=== PATIENT | male | born 1945 | race Caucasian/White ===

== ENCOUNTER 2024-05-05 07:49 | Day surgery (SDC) | payer OTHER, SELFPAY ==
--- NOTE | 2024-05-04 12:27 | CONSULT.STRU ---
Consultation
-
Date/Time Consultation Requested: 05/05/2024
Date/Time Consultation Performed: 05/05/2024
Requesting Provider: Reynaldo Sanchez MD
Performing Provider: JOHN Howell
Reason for Consultation: / TAVR
Patient History
Physicians
Family Physician: Moises Ruiz MD
Outpatient Program Lead: Bartolo Cisneros MD
Primary Program Lead: Bartolo Cisneros MD
History of Present Illness
Mr. Dean is a very pleasant 78 yom that presents with severe symptomatic aortic stenosis associated with WALLER and fatigue. Patient also ILD and is on home 02. Echocardiogram from 03/14/2024 is notable for: EF 65-70%, aortic valve P/M 66/37, ANJELICA 0.9,
Pk gilda. 4.06, DI 0.2. Discussed the pathophysiology and treatment options of aortic stenosis including SAVR and TAVR. Explained the evaluation process comprising of CT scan, CT surgical consult, dental clearance, and a heart team discussion. TAVR
booklet, contact information, prescriptions, and appointments given to patient. Allowed for and answered questions at bedside.
Past Medical History
Past Medical History: COPD (ILD, home O2), CVA/TIA (TIA), HTN, NIDDM, ADY (BiPAP), Valvular Disease (Aortic stenosis) and Other (obesity, mixed hyperlipidemia, PAD)
Past Surgical History
Past Surgical History: Other (hernia, moles removed)
Dental History
will need to make an appointment
Family History
Mother: at Age
Father: at Age
Social History
Alcohol: Occasional
Drug: None
Tobacco: Former Smoker
Personal:
Living: With Spouse
Allergies
NKDA
Home Medications
Aspirin 81 MG Tablet Delayed Release 1 tablet Orally Once a Day
Clopidogrel Bisulfate 75 MG Tablet 1 tablet Orally Once a day
Glimepiride 2 MG Tablet 1 tablet with breakfast or the first main meal of the day Orally Once a day
Lasix(Furosemide) 40 MG Tablet 1 tablet daily as needed for leg edema Orally , Notes to Pharmacist: prn
levETIRAcetam 750 MG Tablet 1 tablet Orally every 12 hrs
Losartan Potassium 25 MG Tablet 1 tablet Orally Once a Day
Magnesium 250 MG Tablet 1 capsule Orally Once a Day
Melatonin Gummies 2.5 MG Tablet Chewable 2 tabs Orally Once a Day PRN
Mycophenolate Mofetil 500 MG Tablet 3 Orally Twice a Day
Omeprazole 40 MG Capsule Delayed Release 1 tablet 30 minutes before morning meal Orally Once a Day
Pantoprazole Sodium 40 MG Tablet Delayed Release 1 tablet Orally Once a day
predniSONE 10 MG Tablet 1/2 tablet Orally Once a day , Notes to Pharmacist: 1/2 tablet once a day
Simvastatin 10 MG Tablet 1 tablet in the evening Orally Once a day
Symbicort(Budesonide-Formoterol Fumarate) 80-4.5 MCG/ACT Aerosol 2 puffs Inhalation Twice a day
Tamsulosin HCl 0.4 MG Capsule 1 capsule Orally Once a day
Vitamin B 12 250 MCG Lozenge 2 lozenges Orally Once a day
STS%
STS %: 6.11
Review of Systems
-
History Source: Patient
General: Reports Fatigue
HEENT: Reports No Symptoms
Respiratory: Reports SOB and WALLER
Cardiac: Reports Edema
Abdomen/GI: Reports No Symptoms
: Reports No Symptoms
Musculoskeletal: Reports No Symptoms
Skin: Reports No Symptoms
Neurological: Reports No Symptoms
Vascular: Reports No Symptoms
Physical Exam
Labs
03/07/2024
BUN/Creatinine: 17/1.41
GFR 50
05/02/2024
HH: 10.6/34.1
Plt: 203K
BUN/creatinine: 15/1.35
GFR: 53
Diagnostic Studies
Echocardiogram 03/14/2024
FINDINGS
Left Ventricle
Normal left ventricular size with borderline concentric LVH. Grossly normal
left ventricular function and systolic motion, although due to the technical
limitations of the study a subtle wall motion abnormality cannot be excluded.
Estimated ejection fraction seems to be in the range of 65 to 70%. Grade 1
diastolic dysfunction.
Right Ventricle
Grossly normal right ventricular size and function.
Left Atrium
Borderline left atrial size.
Right Atrium
Grossly normal right atrial size.
Mitral Valve
Mild mitral annular calcification. Aortic valve leaflets are mildly thickened
but demonstrated adequate excursion. No mitral regurgitation detected.
Aortic Valve
Probably trileaflet aortic valve with a bicuspid valve cannot be excluded.
Leaflets are thickened calcified with decreased excursion. Peak and mean
gradients across aortic valve were 66 and 37 mmHg respectively. This would be
consistent with moderately severe to severe aortic stenosis. No aortic
insufficiency detected.
Tricuspid Valve
Tricuspid valve is suboptimally visualized but grossly appeared to be normal.
There was trace tricuspid regurgitation. RV systolic pressure was estimated at
32 mmHg assuming a normal right atrial pressure.
Pulmonic Valve
Pulmonic valve is not well-visualized. No pulmonic insufficiency detected.
Pericardium\\Pleura
Was trivial posterior pericardial effusion.
Aorta
Aortic root was mildly dilated and atherosclerotic.
Other Finding
IVC was suboptimally visualized but grossly appeared to be of normal size and
respiratory variation suggesting normal right atrial pressure.
Interatrial septum was grossly intact with no evidence of shunt or aneurysm.
MEASUREMENTS (Male / Female) Normal Values
2D ECHO
LV Diastolic Diameter PLAX 5.6 cm 4.2 - 5.9 / 3.9 - 5.3 cm
LV Systolic Diameter PLAX 3.8 cm
IVS Diastolic Thickness 1.1 cm 0.6 - 1.0 / 0.6 - 0.9 cm
LVPW Diastolic Thickness 1.0 cm 0.6 - 1.0 / 0.6 - 0.9 cm
LV Relative Wall Thickness 0.4
RV Internal Dim ED PLAX 3.4 cm
LVOT Diameter 2.4 cm
Aortic Root Diameter 3.9 cm
Ascending Aorta Diameter 4.0 cm
DOPPLER
AV Peak Velocity 406.6 cm/s
AV Peak Gradient 66.1 mmHg
AV Mean Gradient 37.3 mmHg
AV Velocity Time Integral 91.2 cm
LVOT Peak Velocity 104.0 cm/s
LVOT Peak Gradient 4.3 mmHg
LVOT Velocity Time Integral 19.9 cm
LVOT Stroke Volume 86.2 cm3
LVOT Stroke Volume Index 36.0 ml/m2 empty
LVOT Cardiac Index 2197.3 cm3/min
AV Area Cont Eq vti 0.9 cm2
AV Area Cont Eq pk 1.1 cm2
MV Peak Velocity 123.7 cm/s
MV Peak Gradient 6.1 mmHg
MV Mean Velocity 78.6 cm/s
MV Mean Gradient 2.8 mmHg
Mitral E Point Velocity 81.2 cm/s
Mitral A Point Velocity 93.6 cm/s
Mitral E to A Ratio 0.9
TR Peak Velocity 269.7 cm/s
TR Peak Gradient 29.1 mmHg
Right Ventricular Systolic Press 32.1 mmHg
Procedure Type:�Isolated AVR
PERIOPERATIVE OUTCOME ESTIMATE %
Operative Mortality 6.11%
Morbidity & Mortality 17.1%
Stroke 1.3%
Renal Failure 4.14%
Reoperation 3.4%
Prolonged Ventilation 9.83%
Deep Sternal Wound Infection 0.105%
Long Hospital Stay (>14 days) 14.4%
Short Hospital Stay (<6 days)* 25.4%
Exam
General: Well Nourished, No Apparent Distress and Other (obese)
HEENT: Normocephalic
Cardiac: Murmur (III/ DINESH)
GI: Soft and Non Tender
Rectal: Deferred by Provider
Extremities: Lower Level Edema
Psych: Calm
Assessment / Plan
-
Aortic stenosis
Continue TAVR evaluation
Trend creatinine after contrast (Rx given)
TAVR CT scan (05/19)
CT surgical consult ([facility] 05/24)
Frailty testing and KCCQ12 at consult
Dental clearance
Continue aspirin and plavix
Heart team discussion
Data Reviewed
-
Maintenance Controller: Report Reviewed by me and Discussed with Physician
Echo: Report Reviewed by me and Discussed with Physician
Labs: Labs Reviewed by me
Old Records: Reviewed (Dr. Sanchez office note)
Total Time Spent with Patient (in minutes): 45
[2024-05-05] VITALS (14 sets, daily range): BP systolic 127–151; BP diastolic 67–90
[2024-05-05 09:08] LABS: Glucose - Point of Care 111 mg/dl (70-99)
[2024-05-05] MEDS: NSS 1000 IV (11:42)
--- NOTE | 2024-05-05 15:27 | ITS.CL.CATH ---
Director Writing - Catheterization
Cardiac Catheterization
Procedure Report:
CARDIAC CATHETERIZATION REPORT
Date of Procedure: 05/05/24
Referring: Dr. Shaq Sanchez
Indication: severe
PROCEDURE:
1. Right heart catheterization
2. Left heart catheterization
3. Coronary angiography
ACCESS:
6 Cuban right radial artery
6 Cuban right antecubital vein
CATHETERS:
1. 6 Cuban balloon wedge catheter
2. 6 Cuban JL3.5
3. 6 Cuban JR4
4. 6 Cuban Eitan pigtail
HEMODYNAMIC DATA
LV 194/10 (EDP 25) mmHg
AO 128/78 (mean 103) mmHg
RA 15 mmHg
RV 50/13 (EDP 19) mmHg
PA 53/24 (mean 34) mmHg
PCWP 19 mmHg
SaO2 97.4 %
SvO2 73.7 %
CO/CI 7.9/3.4 L/min/m2
PVR 1.9 Wood units
SVR 851 dsc*-5
Mean grad 48 mmHg
ANJELICA (Gorlin) 0.98 mmHg
CORONARY ANGIOGRAPHY
Dominance: right
LM: normal
LAD: gives rise to a small ramus/D1 and moderate caliber D2. There is a 40% ostial stenosis in the D2 and otherwise trivial luminal irregularities.
LCx: gives rise to a moderate caliber OM1 and moderate caliber LPL branch. There are trivial luminal irregularities.
RCA: gives rise to a moderate caliber RPDA and several small RPL branches. There are trivial luminal irregularities.
Closure Device: TR band
Radiation dose (mGy): 558.66
DAP (cm2.Gy): 46.3434
Fluoroscopy time (minutes): 12.1
CONCLUSIONS:
1. 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
2. Severe aortic stenosis
3. Non-obstructive coronary artery disease in a right dominant system
RECOMMENDATIONS:
1. Expectant management after cardiac catheterization via right radial artery
2. Continued PRN diuresis for chronic diastolic heart failure
3. Proceed with workup for TAVR
Copy to: Dr. Bartolo Cisneros MD (primary catheterization laboratory technician)
Reynaldo Sanchez MD, PhD
== END 2024-05-05 13:59 | disposition home or self-care (01) ==
LOC: CATH 07:49
PROVIDERS: ATTENDING PHYSICIAN Student in an Organized Health Care Education/Training Program; FAMILY PHYSICIAN Internal Medicine; OTHER PHYSICIAN Internal Medicine Cardiovascular Disease
DX: I25.10 Atherosclerotic heart disease of native coronary artery without angina pectoris (principal); I08.0 Rheumatic disorders of both mitral and aortic valves; I10 Essential (primary) hypertension; E11.9 Type 2 diabetes mellitus without complications; G47.33 Obstructive sleep apnea (adult) (pediatric); E78.2 Mixed hyperlipidemia; J44.9 Chronic obstructive pulmonary disease, unspecified; I27.29 Other secondary pulmonary hypertension; Z86.73 Personal history of transient ischemic attack (TIA), and cerebral infarction without residual deficits; Z87.891 Personal history of nicotine dependence; Z79.82 Long term (current) use of aspirin; Z79.02 Long term (current) use of antithrombotics/antiplatelets; Z79.84 Long term (current) use of oral hypoglycemic drugs
CPT/HCPCS: 82962; 93460; C1769; C1894; Q9967

== ENCOUNTER → 2024-05-19 09:20 | Outpatient (REF) | payer OTHER, SELFPAY | LOC: RAD 09:20 | PROVIDERS: ATTENDING PHYSICIAN Nurse Practitioner Acute Care; FAMILY PHYSICIAN Internal Medicine; REFERRING PHYSICIAN Internal Medicine Cardiovascular Disease | DX: I35.0 Nonrheumatic aortic (valve) stenosis (principal) | CPT/HCPCS: 74174; 75572; Q9967 ==

== ENCOUNTER 2024-06-16 07:25 | Inpatient (IN) | payer OTHER, SELFPAY ==
[2024-06-08 13:59] LABS: % Basophils 0.4 % (0-2); % Eosinophils 1.1 % (0-6); % Immature Granulocytes 0.5 % (0-0.5); % Lymphocytes 7.2 % (20.5-51.1); % Monocytes 7.6 % (1.7-9.3); % Neutrophils 83.2 % (42.2-75.2); Absolute Basophils 0.1 10^3/uL (0-0.2); Absolute Eosinophils 0.1 10^3/uL (0-0.7); Absolute Immature Granulocytes 0.1 10^3/uL (0-0.05); Absolute Lymphocytes 0.9 10^3/uL (1.2-3.4); Absolute Monocytes 0.9 10^3/uL (0.1-0.6); Absolute Neutrophils 9.9 10^3/uL (1.4-6.5); Hematocrit 34.5 % (39.0-52.0); Hemoglobin 11.1 g/dL (13.0-18.0); Mean Corp Hgb Conc. 32.2 g/dL (33.0-37.0); Mean Corpuscular Hgb 29.8 pg (27.0-31.0); Mean Corpuscular Volume 92.5 fL (80.0-94.0); Mean Platelet Volume 11.3 fL (7.4-10.4); Nucleated Red Blood Cells % 0 % (-); Platelet Count 169 10^3/uL (130-400); Red Blood Cell Count 3.73 10^6/uL (4.70-6.10); Red Cell Dist. Width 13.7 % (11.5-14.5); White Blood Cell Count 11.9 10^3/uL (4.8-10.8)
--- NOTE | 2024-06-08 14:04 | CM ---
Met with and Mrs. Dean in [facility]. He states prior to admission he resides with his spouse in a two story home with nine steps to enter. He states he has a full flight of steps to get to bedroom/full bathroom. He states he has a powder room on
the first floor. He states prior to admission he ambulates independently in the home but uses a single point cane or walker in the community. He states he uses home 02 at 3 liters. [employer] supplies his home 02. He has a walker,
single point cane,and Bipap Machine, home 02 portable tanks and concentrator and Inogen machine at home. He states he has a prescription plan. His spouse states she will be home to assist in his care if needed. The discharge plan is to return
home with his spouse and [facility] when medically stable.
We reviewed pre-op and post-op routines. We reviewed the shower instructions. He has he soap, written instructions and the TAVR Educational Booklet. We also reviewed restrictions including lifting and driving restrictions. We discussed [facility] and he is agrgeeable to [facility]. The plan is for TAVR on 06/16/24.
[2024-06-08 14:09] LABS: Urine Albumin Negative (Neg - Trace); Urine Bilirubin Negative (Negative); Urine Character Clear (Clear); Urine Color Yellow; Urine Glucose Trace (Negative); Urine Ketone Negative (Negative); Urine Leukocyte Trace (Negative); Urine Nitrite Negative (Negative); Urine Occult Blood Negative (Negative); Urine Urobilinogen Negative (Neg - 1+)
[2024-06-08 14:14] LABS: ALT (SGPT) 13 U/L (0-50); AST (SGOT) 14 U/L (17-59); Albumin 4.5 g/dl (3.5-5.0); Alkaline Phosphatase 115 U/L (38-126); Blood Urea Nitrogen 20 mg/dl (9-20); Calcium 8.9 mg/dl (8.4-10.2); Carbon Dioxide 27 mmol/L (22-30); Chloride 100 mmol/L (98-107); Direct Bilirubin 0.2 mg/dl (0.0-0.4); Glucose 216 mg/dl (70-99); Potassium 4.7 mmol/L (3.5-5.1); Sodium 142 mmol/L (135-145); Total Bilirubin 0.4 mg/dl (0.2-1.3); Total Protein 6.6 g/dl (6.3-8.2); eGFR 50.49
[2024-06-08 14:21] LABS: NT-proBNP 234 pg/ml
[2024-06-08 14:24] LABS: APTT 26.2 Sec (23.4-35.0)
[2024-06-08 14:47] LABS: Urine Red Blood Cell 0-2 /HPF (0-2)
[2024-06-08 15:19] LABS: INR 1.11; PT 14.3 Sec (11.4-14.6)
[2024-06-09 12:44] LABS: Glycohemoglobin (HgbA1c) 7.3 % (4.0-5.6)
[2024-06-16] VITALS (26 sets, daily range): BP systolic 100–142; BP diastolic 37–83; BMI 36.0
[2024-06-16] MEDS: ANCEF 10 IV ×2 (06:00→14:21)
[2024-06-16 08:02] LABS: Glucose - Point of Care 170 mg/dl (70-99)
--- NOTE | 2024-06-16 08:29 | CM ---
Reviewed chart. Mr. Dean is in the operating room today. Prior to admission he resides with his spouse in a two story home with nine steps to enter. He has a full flight of steps to get to bedroom/full bathroom. He has a powder room on the first
floor. Prior to admission he ambulates independently in the house and uses a single point cane or walker in the community. He uses home 02 at 3 liters. [employer] services his home 02. He has a walker, single point cane home 02,
Bi-pap Machine, concentrator, portable o2 and Inogen machine at home. He has a prescription plan. His spouse will be home to assist in his care if needed. Medical work-up in progress. The discharge plan is to return home with his spouse and a
home visit by the Transitional Care Nurse when medically stable.
--- NOTE | 2024-06-16 08:42 | W.CVOR.SURPR ---
CVOR Surgeon Immed Pre Op
-
I have examined this patient prior to performance of the scheduled procedure.
The patient's condition is unchanged from the time of the dictated/written History and
Physical and the patient is able to undergo the scheduled procedure.
TF TAVR
Full Rescue
Understands that with his current lung function he may end up vent dependent with a tracheostomy should he undergo open heart surgery
[2024-06-16] MEDS: BACTROBAN 2% OINTMENT 0.5 APPLIC NASAL (09:06)
--- NOTE | 2024-06-16 11:13 | W.PN.CT.SURG ---
CT Surgery Operative Note
-
OPERATIVE REPORT
Preoperative Diagnosis: Severe aortic valve stenosis, symptomatic
Postoperative Diagnosis: Same
Procedure(s) Performed: Right trans femoral TAVR with a 26mm Andres TAVR valve
Date of Procedure: 06/16/24
Comorbidities:
1. Severe aortic stenosis, symptomatic
2. Severe pulmonary disease on baseline supplemental oxygen
3. Hypertension
4. Hyperlipidemia
5. Morbidly obese with a BMI of greater than 30
6. Diabetes
7. History of TIA and possibility of atypical seizures
8. CKD
9. Anemia
Cardiac Surgeon: Mundo South MD, MS
Filling And Stapling Machine Operator: Shaq Sanchez MD
Anesthesia: LMA + sedation and Local Analgesia
EBL: 150cc
Products: none
Implant: 26 mm Andres TAVR valve, SN: [id number]
Indication(s) for Procedures: 79-year-old male with symptomatic severe aortic stenosis. CT-TAVR protocol revealed acceptable anatomy for TAVR access and implantation. His invasive mean gradient was significant for aortic valve stenosis. He also
had severe pulmonary fibrosis and required supplemental oxygen. He was considered to be a high risk TAVR patient.
Start time: 1008hrs
Deployment time: 1040hrs
End time: 1056hrs
Radiation Dose (mGy): 659.95
DAP (cm2.Gy): 63.3998
Fluoroscopy time (minutes): 8.1
Contrast volume (ml): 65
TAVR gradient (mmHg): 14-16mmHg
Heparin Dose: 9500units
Protamine Dose: 40mg
Final Valve Positionin/10
Findings: Preoperative LVEF was 60% and was 65-70% following TAVR without inotropic support. Function was overall normal without regional wall motion abnormalities or dyskinesia. The aortic valve was well seated without detectable PVL and mean
gradient across the new valve was 14-16mmHg although he did appear to be hyperdynamic. Following deployment of the valve, did not require any further episodes of pacing and returned to sinus while on the director of cardiac cath lab table. There was successful
placement of 26 mm nominal TAVR valve without acute complications. Of note he had a very horizontal root however the valve was seated nicely. Given his baseline severe pulmonary disease, he will be given lasix in the CVICU.
Access:
1. Device -right common femoral artery, perclose x 2 + 8Fr angioseal
2. Pigtail -left common femoral artery + 6Fr angioseal
3. Transvenous Pacer -left femoral vein
Description of Procedure: The patient was taken to the director of cardiac cath lab. Their identity and procedure to be performed were verified and they were positioned supine on the director of cardiac cath lab table. Induction via conscious sedation. The patient was then prepped and
draped from chin to thigh in a sterile fashion. A preoperative time-out was performed with all members of the team present. Arterial and venous access was performed using fluoroscopy and ultrasound guidance with micropuncture and Seldinger
technique. Two perclose devices were used on the device side. Upon removal of the second Perclose device it was snagged on the first and so a third Perclose was placed in order to secure the closure. This was followed by access to the aorta with a
stiff wire to facilitate E-sheath placement. Heparin was given. A stiff straight wire and AL-1 catheter was used to cross the aortic valve. The stiff wire was exchanged for an extra stiff coiled tip wire. The valve was prepped and mounted on to the
device carrier. An ACT of >250 was achieved. We verified x 3 that the valve was mounted in the correct orientation with the skirt of the valve directed toward the tip of the device carrier. We advanced the device into the descending thoracic aorta
where the valve was them mounted onto the balloon under fluoroscopy. The device was flexed and advanced over the arch into the root and positioned across the aortic valve. Contrast fluoroscopy was used to visualize the prosthesis across the valve
and to guide positioning. A pigtail catheter in the RCC as used as a guide. We aimed to have the bottom of the device marker at the annular hinge point. The device sheath was pulled back. We performed a quick pre-deployment time out. The pacer was
turned on and had capture. Blood pressure fell accordingly, angiography was done to verify the intended final placement and the valve was deployed with 5 seconds of rapid pacing to nominal volume. The balloon was deflated and the pacer was turned
off. We had recovery of vitals. The device carrier was unflexed and positioned back in the descending thoracic aorta. A transthoracic echocardiogram was performed. The device was removed from the E-Sheath maintaining wire access followed by removal
of the E-sheath as we cinched down the perclose devices. Additional 8 Tongan Angiocath was required for adequate hemostasis. There was acceptable hemostasis thereafter. The pigtail was withdrawn into the descending/abdominal and completion
aortogram with runoff run-off angiography was performed. There was no stenosis or dissection of bilateral iliofemoral systems. There was acceptable hemostasis of bilateral groins and manual pressure was held following wire removal. Low dose
protamine was administered after checking another ACT.
All instrument, sponge, and needle counts were confirmed to be correct x 2 at the end of the operation. The patient was transferred to the cardiac intensive care unit in stable condition.
I, Dr. Mundo South, was present, scrubbed for, and performed all critical elements of this procedure.
Mundo South MD
Cardiothoracic Surgeon
[facility]
This operative dictation was created using the [employer] dictation system. Please excuse any grammatical, typographical, or 'sound alike' errors
[2024-06-16] MEDS: LEVOPHED 250 IV (11:22)
--- NOTE | 2024-06-16 11:25 | ITS.CL.TAVR ---
Sugar House Supervisor - TAVR Report
TAVR PRocedure
Procedure Report:
TRANSCATHETER AORTIC VALVE REPLACEMENT REPORT
Date:06/16/2024
Referring physician: Dr. Bartolo Cisneros MD
Preop diagnosis: severe aortic stenosis
Postop diagnosis: severe aortic stenosis s/p transfemoral TAVR
Procedure: Transcatheter aortic valve replacement (TAVR) using a #26 Andres HOMERO S3 Ultra.
Operators: Reynaldo Sanchez MD, PhD (cardiology); Mundo South MD (CT surgery)
Findings: Severely calcified and stenotic aortic valve
Anesthesia: Conscious sedation was provided by the anesthesia staff
Estimated blood loss: Negligible
Complications: None
Condition: Stable
Procedure:
The patient was brought to the cardiac cath laboratory technician after consent and was prepped and draped in standard sterile fashion. Conscious sedation was provided by the anesthesia staff. After a 'Time Out,' the left common femoral artery and the left common
vein were accessed using a modified Seldinger technique with a micropuncture kit under ultrasound guidance. A 6 Bolivian sheath was placed in the left femoral vein. Angiography performed through the micropuncture sheath confirmed satisfactory
arterial placement in the left common femoral artery. The micropuncture sheath was replaced with a 6Fr sheath in the left BRUSHING MACHINE OPERATOR. A temporary pacing wire was advanced through the left femoral vein and into the right ventricle. The pacemaker
demonstrated good capture and was set to back up. A 5Fr pigtail catheter was advanced through the left femoral sheath and seated in the right coronary cusp. Angiography confirmed co-planar angles. Next, the right common femoral artery was accessed
using a modified Seldinger technique with a micropuncture kit under ultrasound guidance. Angiography through the micropuncture kit confirmed satisfactory arterial placement in the right common femoral artery. The right BRUSHING MACHINE OPERATOR was dilated with an 8FR
dilator and preclosed with two Perclose devices. The second Perclose delivery catheter met with resistance when exiting the vessel, possibly due to being caught on suture from the first Perclose. This was resolved with re-opening and closing the
footplate. A third Perclose was placed given concern that one or both of the first two Perclose sutures may have been damaged. An 8Fr sheath was then placed in the [facility].
An AL-1 catheter was advanced through the 8Fr sheath, the J wire was exchanged for an Amplatz Extrastiff wire and the catheter and the 8 Fr sheath was removed. A 16 Fr Andres dilator was used to dilate the tract and then removed. The 14 Fr Andres
E-sheath was inserted over the wire and into the descending aorta. Heparin 4500 units was given. The HOMERO S3 was prepared on the back table. Valve orientation was confirmed by both physicians. The AL-1 catheter was re-advanced through the
E-sheath to the level of the ascending aorta. The Extrastiff wire was removed and a soft tip straight wire was advanced through the AL-1 and used to cross the aortic valve. The straight wire was removed and an Amplatz Extrastiff wire with curved
proximal end was advanced through the AL-1 catheter and into the left ventricle. The wire was seated in the apex and the catheter was removed. ACT was checked and confirmed to be > 250 seconds.
The valve was advanced over the Extrastiff wire and into the descending aorta. The balloon was withdrawn and the valve was mounted on the balloon. The valve was advanced over the aortic arch and into the aortic valve annulus. The pusher device
was withdrawn to allow for balloon expansion. Low volume aortography confirmed good position of the valve. The valve was deployed during rapid ventricular pacing. Echocardiography and aortography confirmed a good result with no AI and a 14 mmHg
mean gradient. The valve deployment system was removed. The Andres E sheath was then removed and hemostasis obtained with the three Perc-Close sutures and an additional 8F Angioseal due to failure of one of the Perclose sutures and ongoing mild
bleeding around the wire after cinching of the remaining two sutures. Final angiography demonstrated no evidence of ileofemoral dissection/perforation and good runoff below the common femoral artery. The pacemaker and the pigtail catheter were
removed. The left femoral artery sheath was removed using a 6Fr Angioseal. The left femoral venous sheath was removed and manual pressure was applied with excellent hemostasis.
Radiation
Dose (mGy): 659
DAP (cm2.Gy): 63.39
Fluoroscopy time (minutes): 8.1
Conclusions:
1. Successful placement of #26 Homero S3 Ultra aortic valve with no acute complications
2. Mildly elevated LVEDP (EDP 22 mmHg)
Signed: Reynaldo Sanchez MD, PhD
Copy to: Dr. Bartolo Cisneros (Talent Acquisition Lead); Dr. Moises Ruiz (PCP)
--- NOTE | 2024-06-16 11:48 | PTCARENOTE ---
Bren RAMIREZ PA at bedside to assess pt, aware of vs trending- will wean levophed as able, O2 sat running 90-93% on 6L nc, lung sounds with exp wheezing throughout and crackles throughout, will request neb treatment and lasix to be given at 1400,
accucheck 184- no treatment ordered at this time
[2024-06-16 11:59] LABS: Glucose - Point of Care 184 mg/dl (70-99)
[2024-06-16] MEDS: VENTOLIN NEBULES 2.5 MG INH (12:00)
[2024-06-16] MEDS: FLUSH (NSS) 2 FLUSH IV ×2 (15:14→17:37)
[2024-06-16] MEDS: LASIX 20 MG IV (15:14)
[2024-06-16] MEDS: ANCEF 5 IV (17:36)
[2024-06-16] MEDS: LIPITOR 10 MG PO (17:37)
--- NOTE | 2024-06-16 17:56 | PTCARENOTE ---
Received patient from PACU at 1245 after TAVR via R femoral artery and L femoral artery and vein. Patient was on a levophed gtt at 1mcg/min with orderes to wean off if MAP > 65. Oriented to the room and plan of care. Monitoring VS and neuro status
according to protocol which have been stable. Patient completed 4 hours of bedrest and was then assisted oob to the bathroom after he received IV lasix as ordered. Dressing right groin with serosanguineous drainage contained in the dressing has
remained unchanged. Left groin dressing has a scant spot of drainage which has not changed. MAP has remained > 65 x 4 hours as per order, levophed was discontinued. Patient is on 3L NC with pulse ox of 95%, patient uses 3L at home. Patient is
sitting oob in the chair, call lugo in reach and he is aware to call for assistance with the rolling walker when he needs to get up or go to the bathroom and he is agreeable.
[2024-06-16] MEDS: KEPPRA 750 MG PO (19:27)
[2024-06-16] MEDS: CELLCEPT 1500 MG PO (19:27)
[2024-06-16] MEDS: SYMBICORT 80/4.5 MCG INHALER 2 PUFF INH (20:10)
[2024-06-17] VITALS (14 sets, daily range): BP systolic 73–133; BP diastolic 51–84; PULSE 101; O2SAT 94–95; BMI 35.3
--- NOTE | 2024-06-17 00:01 | PTCARENOTE ---
Pt received start of shift, HR SR w/1st degree AV block. Pt initially on 3L NC, switched to own BiPap - 93-94%. Neuro WNL. B/l groin sites soft - no hematoma. R groin dressing lightly saturated w/ light pink drainage - CVPA Tsilina at bedside -
dressing replaced. Very small sanguineous drainage noted on L groin dressing - no spread since change of shift. Pt ambulating x1 assist in room, WALLER noted. Pt updated on plan of care, pt states no questions
[2024-06-17 05:22] LABS: Glucose - Point of Care 179 mg/dl (70-99)
[2024-06-17 05:27] LABS: Hematocrit 29.9 % (39.0-52.0); Hemoglobin 9.8 g/dL (13.0-18.0); Mean Corp Hgb Conc. 32.8 g/dL (33.0-37.0); Mean Corpuscular Hgb 29.3 pg (27.0-31.0); Mean Corpuscular Volume 89.5 fL (80.0-94.0); Mean Platelet Volume 11.2 fL (7.4-10.4); Platelet Count 153 10^3/uL (130-400); Red Blood Cell Count 3.34 10^6/uL (4.70-6.10); Red Cell Dist. Width 13.4 % (11.5-14.5); White Blood Cell Count 12.6 10^3/uL (4.8-10.8)
[2024-06-17 05:49] LABS: Blood Urea Nitrogen 25 mg/dl (9-20); Calcium 8.7 mg/dl (8.4-10.2); Carbon Dioxide 28 mmol/L (22-30); Chloride 101 mmol/L (98-107); Estimated Creatinine Clearance 48 ml/min; Glucose 176 mg/dl (70-99); Potassium 4.4 mmol/L (3.5-5.1); Sodium 138 mmol/L (135-145); eGFR 46.48
--- NOTE | 2024-06-17 06:05 | W.PN.CT ---
Today's Communication / Plan
-
-pod #1
-no issues overnight
-no raven or pauses overnight. 1st degree AVB (not new)
-diuresed with 20 iv Lasix (UO 750+)
-Echo today
-current meds : ASA, Plavix, Lipitor, Cozaar, Prednisone
-encourage IS, OOB, ambulate
-possible d/c today
Assessment / Plan
-
- Severe aortic valve stenosis, symptomatic- s/p Right trans femoral TAVR with a 26mm Andres TAVR valve on 06/16/24, pod #1
- Post TTE: Preop LVEF was 60% and was 65-70% following TAVR without inotropic support. No regional wall motion abnormalities or dyskinesia. The aortic valve was well seated without detectable PVL and mean gradient across the new valve was 14-16mmHg
although he did appear to be hyperdynamic.
- Severe pulmonary fibrosis on baseline supplemental oxygen- on 3L home O2
- Hypertension
- Hyperlipidemia
- Class 2 obesity, BMI 36
- Diabetes
- History of TIA and possibility of atypical seizures
- CKD3 (Cr 1.4 preop)
- Chronic anemia
- Pre-existing 1st degree AVB
Discussed patient care with: Nursing and Care Team
Subjective
Procedure
s/p Right trans femoral TAVR with a 26mm Andres TAVR valve on 06/16/24
-
Date of Service: June 16, 2024
Objective Data
-
Lab Results
06/08/24 12:05
06/08/24 12:05
PT 14.3 Sec (11.4-14.6) 06/08/24 12:05
INR 1.11 06/08/24 12:05
APTT 26.2 Sec (23.4-35.0) 06/08/24 12:05
Vital Signs
Vital Signs
Temp Pulse Resp BP Pulse Ox
98.3 F 95 1 115/81 95
06/16/24 19:00 06/16/24 20:46 06/16/24 20:46 06/16/24 20:00 06/16/24 20:46
CT Intake/Output/Weight
06/16/24 06/16/24 06/17/24
06:59 18:59 06:59
Intake Total 1460 / 1460
Output Total 750 / 750
Balance 710 / 710
SaO2: 95
Physical Exam
-
General: Awake and AOx3
Cardiovascular: Regular rate & rhythm, No Murmurs and No Rub
Respiratory: Rales (few rales at bases, no wheeze b/l) and Decreased Breath Sounds
Incision: Other (groins are cdi, soft, nontender, no hematoma b/l)
Extremities: Edema +2 (DPs and PTs are Dopplerable b/l)
Data Reviewed
-
Lab Results: Results Reviewed
Medications: Active Meds Reviewed
Chest X-Ray: Report Reviewed and Image Reviewed
ECG: Report Reviewed and Image Reviewed
--- NOTE | 2024-06-17 06:08 | PTCARENOTE ---
Pt stated he felt like he was 'crashing' referring to his blood sugars. Accu check completed, 179.
--- NOTE | 2024-06-17 07:55 | W.PN.ANS.POP ---
Anesthesia Post Operative
- Anesthesia Post Op Note
Vital Signs Stable-See Nursing Note: Yes
Airway Patent: Yes
Adequate Pain Control: Yes
Change in Mental Status: No
Current Postoperative Nausea & Vomiting: No
Anesthesia Complications: No
General Anesthetic Recall: No
Unplanned Admission: No
Post Op Hydration Adequate: Yes
[2024-06-17] MEDS: THERAGRAN 1 TABLET PO (08:02)
[2024-06-17] MEDS: PLAVIX 75 MG PO (08:02)
[2024-06-17] MEDS: DELTASONE 5 MG PO (08:02)
[2024-06-17] MEDS: MAGNESIUM OXIDE 250 MG PO (08:02)
[2024-06-17] MEDS: VITAMIN D3 (cholecalciferol) 25 MCG PO (08:02)
[2024-06-17] MEDS: FLOMAX 0.4 MG PO (08:02)
[2024-06-17] MEDS: KEPPRA 750 MG PO ×2 (08:02→20:19)
[2024-06-17] MEDS: ASPIR LOW (ENTERIC COATED) 81 MG PO (08:02)
[2024-06-17] MEDS: PROTONIX 40 MG PO (08:03)
[2024-06-17] MEDS: COZAAR 25 MG PO (08:03)
[2024-06-17] MEDS: CELLCEPT 1500 MG PO ×2 (08:03→20:20)
--- NOTE | 2024-06-17 08:14 | W.PN.CD ---
Today's Communication / Plan
-
plan for discharge pending TTE and stable Hb
Impression / Plan
-
79 year old man with ILD on home O2 and severe symptomatic aortic stenosis now POD #1 s/p TF TAVR (#26 S3, Daniel/[place]).
Interval Events:
LVEDP in case was 22 mmHg. He received diuresis yesterday.
No acute issues overnight.
Feels well this morning.
Impression:
-doing well post TAVR
-TTE gradient immediately post-TAVR yesterday were 14-16 mmHg
-ECG with stable AV delay, no block
-labs with ~1g Hb drop, repeat pending
-groins intact
Plan:
-TTE
-Hb repeat
-ambulate
-cont. current meds
-home today pending above
Physical Exam
Vital Signs/Labs
Vital Signs
Temp Pulse Resp BP Pulse Ox
37.1 C 97 20 124/66 94
06/17/24 07:11 06/17/24 05:30 06/17/24 07:11 06/17/24 05:01 06/17/24 07:11
06/16/24 06/17/24 06/18/24
06:59 06:59 06:59
Actual Weight 115.666 kg 111.7 kg
06/17/24 05:13
PT 14.3 Sec (11.4-14.6) 06/08/24 12:05
INR 1.11 06/08/24 12:05
APTT 26.2 Sec (23.4-35.0) 06/08/24 12:05
06/08/24
12:05
Agn-[id number]-Vrwqjsixyav Pept 234
Physical Exam
Constitutional: No acute distress
Cardiovascular: Rhythm & rate is regular
Respiratory: Respiratory effort normal
Neuro/Psych: AO x 3
Other: Cath Site
cdi
Data Reviewed
-
Date of Service: June 17, 2024
Medical Decision Making: Reviewed Test Results
EKG: Tracing Personally Visualized and interpreted and Report Reviewed by me
Echo: Tracing Personally Visualized and interpreted and Report Reviewed by me
X-Ray/CT/US/MRI/NUC/PET: Image Personally Visualized and interpreted and Report Reviewed by me
Labs: Labs Reviewed by me
[2024-06-17] MEDS: SYMBICORT 80/4.5 MCG INHALER 2 PUFF INH ×2 (08:18→20:13)
[2024-06-17 10:16] LABS: Hematocrit 30.3 % (39.0-52.0); Hemoglobin 10.1 g/dL (13.0-18.0); Mean Corp Hgb Conc. 33.3 g/dL (33.0-37.0); Mean Corpuscular Hgb 28.9 pg (27.0-31.0); Mean Corpuscular Volume 86.8 fL (80.0-94.0); Mean Platelet Volume 10.3 fL (7.4-10.4); Platelet Count 142 10^3/uL (130-400); Red Blood Cell Count 3.49 10^6/uL (4.70-6.10); Red Cell Dist. Width 13.6 % (11.5-14.5); White Blood Cell Count 14.3 10^3/uL (4.8-10.8)
[2024-06-17 10:54] LABS: Glucose - Point of Care 236 mg/dl (70-99)
--- NOTE | 2024-06-17 11:17 | PTCARENOTE ---
Pt reports not feeling the best. BP 124/55. POX 93% 3L O2 (baseline). B/l groins c/d/i and ecchymotic. Pt stated he was not feeling the best... that he has not eaten too much in last 24 hours. Accu check 236. D. Yohan made aware and no new orders
placed.
[2024-06-17 12:59] LABS: Glucose - Point of Care 406 mg/dl (70-99)
--- NOTE | 2024-06-17 13:30 | PTCARENOTE ---
Addendum entered by Juanita Mohr RN 06/17/24 15:20:
Orders placed for glucose coverage. See MAR. At 1350 Christina. Yohan BERMUDEZ in to assess pt. On his assessment pt having new slurred speech and word salad. Rapid response and stroke alert called. NIHSS-2. Pt taken to head CT by stroke team.
Original Note:
At 1250 pt rang call lugo to report that he was feeling lightheaded and having blurred vision in the center of his vision since this morning. Educated pt importance of reporting any changes in status. BP 133/55. POX 93% 3L; SR in the 90s. Neuro
check performed and WNL. Accu-check performed- RR high. Stat venous glucose ordered and sent. Glucose - 347. Yovani BERMUDEZ made aware.
[2024-06-17 13:44] LABS: Glucose 347 mg/dl (70-99)
[2024-06-17 14:01] LABS: Glucose - Point of Care 394 mg/dl (70-99)
[2024-06-17] MEDS: KEPPRA 1000 MG IV (14:44)
[2024-06-17] MEDS: AMARYL 2 MG PO (14:45)
[2024-06-17] MEDS: NOVOLIN R 0.05 UNITS IV (14:45)
--- NOTE | 2024-06-17 14:45 | CON.NEURO4 ---
Addendum entered and electronically signed by Roberto Askew MD 06/17/24 17:07:
Studies reviewed.
I have personally examined the patient. I reviewed and agree with the NETWORK SUPPORT SPECIALIST's Note.
My addenda:
Awake, alert, interactive. No acute distress.
Speech hesitant at times. Difficulty with repetitive phrases. Names objects without difficulty
Follows 2-step requests w/ difficulty. No tremor.
Extra-ocular movements grossly intact.
Facial movements full and symmetric. Hearing intact to normal conversational volume.
Normal UE movements bilaterally.
Neck: full ROM.
Chest: no dyspnea
Heart: no JVD
Ext: (-) Clubbing, (-) Cyanosis, (-) Edema
IMPRESSIONS/RECOMMENDATIONS:
Abrupt onset of speech change similar to prior episodes the patient has experienced in the past and was associated with possible focal onset seizures
Differential diagnosis includes acute stroke
Check EEG
Levetiracetam 1000 mg IV now in addition to the patient's usual levetiracetam
Check MRI of brain when possible
Follow orthostatic blood pressures
D/W patient / family / nursing
Will continue to follow patient.
Original Note:
Documented by User: Sherley Victoria NP 06/17/24 15:15
Consultation - Neurology 4
-
CONSULTING PHYSICIAN: Roberto Askew MD
REFERRING PHYSICIAN: Cardiology/Nisha Patel PA-C
DICTATED BY: JOHN Rojo
DATE/TIME OF REQUEST: 06/17/24
DATE/TIME OF CONSULTATION: 06/17/24
Reason for Consultation: Stroke Alert
History of Present Illness:
This is an 79-year-old right-handed male who has presented to the hospital on 06/16/24 for scheduled TAVR due to severe aortic stenosis. Patient tolerated surgery well and was in his normal state this morning. Around 1345 he came out of the
bathroom and reported splotchy vision loss, seconds later his speech was dysarthric and intermittently nonsensical prompting a stroke alert to be activated. CT head was obtained and is negative for any acute abnormalities. NIHSS is 2 on Neurology
examination for mild dysarthria and mild intermittent aphasia. He is currently on DAPT with aspirin/clopidogrel.
Per patient's and [facility] medical record review, he has a history of very similar episodes of speech disturbance lasting 5-20 minutes. He was evaluated Neurology by Dr. Rob Anderson at [facility] in 2021 and underwent MRI brain, MRA head/neck, and
EEG all of which were unremarkable. 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 Since he started Keppra in 2021 his reports that he
does intermittently have a brief stare/stumble on words but he hasn't had any episodes as severe as they initially were until today's event. She notes that the patient's mother and maternal uncle had partial seizure disorders and had very similar
symptoms. He denies any history of TIA or stroke in the past. He is not a candidate for TNK/IAT due to low NIHSS and symptoms are rapidly improving.
Past Medical History: Partial seizures vs TIAs, HTN, HLD, NIDDM, severe aortic stenosis, CKD, chronic anemia, 1st degree AVB, obesity, ILD on home oxygen, PAD, LFA aneurysm, RH carpal tunnel
Surgical History: L inguinal hernia repair, teeth extractions, 15 moles removed on forehead
Family History: Mother and maternal uncle with seizure disorder. Sister- brain aneurysm.
Social History: Former smoker. Denies alcohol and illicit drug use.
Allergies: No known allergies.
Home Medications: See below.
Review of Symptoms:
Patient denies any fever, headache, chest pain, shortness of breath, GI or symptoms.
�Per the HPI.�All systems are reviewed negative except above.
Physical Exam:
The patient is afebrile, abdomen is round/nondistended, breathing is unlabored, skin is cool/dry, no edema.
NIH Stroke Scale:
I performed the NIH stroke scale on the patient on 06/17/24 at 1415. The patient scored 2 points on the NIH stroke scale assessment, which were assigned as follows: See below.
Neurologic Examination:
The patient is awake, alert and oriented x 3. He is able to follow commands and answer questions appropriately. There is mild dysarthria and intermittent word salad. On cranial nerve assessment, pupils are 3 mm bilateral, round and reactive to
light and accommodation. Visual partida are full. Extraocular movements are intact. Facial sensations are intact and bilaterally symmetrical, there is no facial asymmetry. Hearing is intact bilaterally to normal conversation volume. Tongue palate
and uvula are midline. Sternocleidomastoid strengths are full bilaterally. Motor strengths are 5/5 bilateral upper and lower extremities on medical research Roberts scale. There is no drift. RUE does have an intermittent distal semi rhythmic medium
amplitude tremor. Deep tendon reflexes are 2+ bilateral upper and lower extremities and Babinski is absent bilaterally. There was no extinction noted on double simultaneous stimulation. Coordination is intact by finger to nose bilaterally.
Lab Results: See below.
Neuro Imaging:
1. CT Head 06/17/24: No acute intracranial abnormalities appreciated. Mild cerebral atrophy. Aspects score 10/10.
Differentials for the patient's presentation include:
1. Speech disturbance of unclear etiology; partial seizure vs small ischemic infarct possible given recent TAVR.
2. History of similar episodes in the past. Family history of partial seizure disorders.
3. CT head is negative for hemorrhage.
Patient has the following risk factors for their symptoms: TAVR, similar episodes,
IV Tenecteplase/IAT candidacy: He is not a candidate for TNK/IAT due to low NIHSS and symptoms are rapidly improving.
Recommendations:
-Provide Levetiracetam 1000mg IV x1 now. Continue Levetiracetam 750mg BID.
-Continue DAPT with aspirin 81mg and clopidogrel 75mg daily.
-Routine EEG pending.
-MRI brain noncontrast pending.
-Goal normotension.
-Check orthostatic vital signs.
-LDL goal <70. Lipid panel pending. Increase home atorvastatin from 10mg to 40mg daily.
-Goal normoglycemia, hbA1c is 7.3.
-Checking blood work for metabolic abnormalities.
-NIHSS and neurological checks per unit guidelines.
-Provide patient with a stroke education packet.
-DVT prophylaxis.
-ST evaluation if symptoms persist.
-Will follow pending results.
Discussed patient care with: Dr. Askew, the patient, patient's spouse
Vital Signs and Labs
-
Vital Signs and Labs:
Vital Signs
Temp Pulse Resp BP Pulse Ox
98.2 F 105 22 105/58 93
06/17/24 10:48 06/17/24 14:15 06/17/24 10:48 06/17/24 13:41 06/17/24 10:48
Lab Results
06/17/24 10:09
06/17/24 13:15
PT 14.3 Sec (11.4-14.6) 06/08/24 12:05
INR 1.11 06/08/24 12:05
APTT 26.2 Sec (23.4-35.0) 06/08/24 12:05
Sodium 138 mmol/L (135-145) 06/17/24 05:13
Potassium 4.4 mmol/L (3.5-5.1) 06/17/24 05:13
BUN 25 mg/dl (9-20) H 06/17/24 05:13
Glucose 347 mg/dl (70-99) H 06/17/24 13:15
Calcium 8.7 mg/dl (8.4-10.2) 06/17/24 05:13
Gjm-[id number]-Uboonqdoimc Pept 234 pg/ml 06/08/24 12:05
Medications
-
Active Medications
Generic Name Dose Route Start Last Admin
Trade Name Freq PRN Reason Stop Dose Admin
Acetaminophen 650 mg 06/16/24 10:35
Acetaminophen 325 Mg Tablet PO 07/14/24 10:34
Q4HPRN PRN
HOWARD, mild pain, or fever >101F
Al Hydrox/Mg Hydrox/Simethicone 30 ml 06/16/24 10:35
Mag/Al/Simethicone Suspension 30 Ml Cup PO 07/14/24 10:34
Q4HPRN PRN
heartburn
Albuterol Sulfate 2.5 mg 06/16/24 10:35 06/16/24 12:00
Albuterol Nebs 2.5 Mg/3 Ml Ampul INH 2.5 mg
R Q4HPRN PRN Administration
wheezing/shortness of breath
Protocol
Aspirin 81 mg 06/17/24 08:00 06/17/24 08:02
Aspirin 81 Mg (Enteric Coated) Tablet PO 07/15/24 07:59 81 mg
DAILY ALICIA Administration
Atorvastatin Calcium 40 mg 06/17/24 15:14
Atorvastatin (Lipitor) 10 Mg Tablet PO 07/14/24 17:59
QPM ALICIA
Budesonide/Formoterol Fumarate 2 puff 06/16/24 20:00 06/17/24 08:18
Symbicort Inhaler 80/4.5 INH 07/14/24 19:59 2 puff
R BID ALICIA Administration
Protocol
Cholecalciferol 25 mcg 06/17/24 08:00 06/17/24 08:02
Cholecalciferol (Vitamin D3) 25 Mcg Tablet (1,000 Units) PO 07/15/24 07:59 25 mcg
DAILY ALICIA Administration
Clopidogrel Bisulfate 75 mg 06/17/24 08:00 06/17/24 08:02
Clopidogrel 75 Mg Tablet PO 07/15/24 07:59 75 mg
DAILY ALICIA Administration
Dextrose 12.5 grams 06/17/24 14:50
Dextrose 50% (0.5 Grams/Ml) 50 Ml Syringe IV 07/15/24 14:49
[id number] PRN
hypoglycemia
Protocol
Glimepiride 2 mg 06/17/24 14:00 06/17/24 14:45
Glimepiride 2 Mg Tablet PO 07/15/24 13:59 2 mg
DAILY ALICIA Administration
Glucagon 1 mg 06/17/24 14:50
Glucagon 1 Mg Vial IM 07/15/24 14:49
PRN PRN
hypoglycemia
Protocol
Insulin Aspart 0 units 06/17/24 16:30
Insulin Aspart Low Resistance 300 Units/3 Ml Pen.Injctr SC 07/15/24 16:29
AC ALICIA
Protocol
Levetiracetam 750 mg 06/16/24 20:00 06/17/24 08:02
Levetiracetam 250 Mg Regular Release Tablet PO 07/14/24 19:59 750 mg
BID ALICIA Administration
Losartan Potassium 25 mg 06/17/24 08:00 06/17/24 08:03
Losartan 25 Mg Tablet PO 07/15/24 07:59 25 mg
DAILY ALICIA Administration
Magnesium Hydroxide 30 ml 06/16/24 10:35
Milk Of Magnesia 30 Ml Cup PO 07/14/24 10:34
BIDPRN PRN
constipation
Magnesium Oxide 250 mg 06/17/24 08:00 06/17/24 08:02
Magnesium Oxide 500 Mg Tablet PO 07/15/24 07:59 250 mg
DAILY ALICIA Administration
Multivitamins Therapeutic 1 tablet 06/17/24 08:00 06/17/24 08:02
Multivitamin Tablet PO 07/15/24 07:59 1 tablet
DAILY ALICIA Administration
Mycophenolate Mofetil 1,500 mg 06/16/24 20:00 06/17/24 08:03
Mycophenolate 500 Mg Tablet PO 07/14/24 19:59 1,500 mg
BID ALICIA Administration
Ondansetron HCl 4 mg 06/16/24 10:35
Ondansetron 4 Mg/2 Ml Vial IV 07/14/24 10:34
Q8HPRN PRN
nausea/vomiting
Pantoprazole Sodium 40 mg 06/17/24 08:00 06/17/24 08:03
Pantoprazole 40 Mg Delayed Release Tablet PO 07/15/24 07:59 40 mg
DAILY ALICIA Administration
Prednisone 5 mg 06/17/24 08:00 06/17/24 08:02
Prednisone 5 Mg Tablet PO 07/15/24 07:59 5 mg
DAILY ALICIA Administration
Sodium Chloride 0 flush 06/17/24 14:00
Sodium Chloride 0.9% (Flush) Syringe IV 07/15/24 13:59
PER PROTOCOL ALICIA
Tamsulosin HCl 0.4 mg 06/17/24 08:00 06/17/24 08:02
Tamsulosin 0.4 Mg Capsule PO 07/15/24 07:59 0.4 mg
DAILY ALICIA Administration
Home Medications
�Medication �Instructions �Recorded
aspirin 81 mg capsule 81 mg PO DAILY Blood Clot 05/05/24
Prevention/Tx
budesonide-formoterol HFA 80 2 puff inhalation BID 05/05/24
mcg-4.5 mcg/actuation aerosol Lung/Breathing Issues
inhaler (Symbicort)
clopidogrel 75 mg tablet (Plavix) 75 mg PO DAILY Blood Clot 05/05/24
Prevention/Tx
furosemide 40 mg tablet (Lasix) 40 mg PO PRN PRN swelling 05/05/24
levetiracetam 750 mg tablet 750 mg PO BID Seizures 05/05/24
losartan 50 mg tablet 25 mg PO DAILY Blood Pressure 05/05/24
magnesium 250 mg tablet 250 mg PO DAILY Supplement 05/05/24
mycophenolate mofetil 500 mg tablet 1,500 mg PO BID Transplant 05/05/24
prednisone 5 mg tablet 5 mg PO DAILY Transplant 05/05/24
simvastatin 10 mg tablet 10 mg PO QPM High Cholesterol 05/05/24
tamsulosin 0.4 mg capsule 0.4 mg PO DAILY Urinary Issue 05/05/24
cholecalciferol (vitamin D3) 25 25 mcg PO DAILY Supplement 06/07/24
mcg (1,000 unit) tablet (Vitamin
D3)
mecobalamin (vitamin B12) 1,000 1,000 mcg PO DAILY Supplement 06/07/24
mcg chewable tablet
omeprazole 40 mg capsule,delayed 40 mg PO DAILY Gastrointestinal 06/07/24
release Issue
Lactobacillus acidophilus 10 10,000 mmu cells PO ONCE Supplement 06/16/24
billion cell capsule (Probiotic)
melatonin 2.5 mg chewable tablet 5 mg PO HS PRN sleep 06/16/24
acetaminophen 325 mg tablet 650 mg (2 x 325 mg) PO Q6HPRN PRN 06/17/24
HOWARD, mild pain, or fever >101F #0
tabs
NIH Stroke Score
Subsequent NIH Scale
Date of Subsequent NIH Scale: 06/17/24
Time of Subsequent NIH Scale: 14:15
NIH Stroke Score
Level of Consciousness: 0 - Alert
LOC Questions: 0-Answers both correctly
LOC Commands: 0-Performs both correctly
Best Horizontal Gaze: 0-Normal
Visual Partida: 0=Normal, no visual loss
Facial Palsy: 0=Normal, symmetrical
Motor - Right Arm: 0=No drift 10 seconds
Motor - Left Arm: 0=No drift 10 seconds
Motor - Right Le-No drift 5 seconds
Motor - Left Le-No drift 5 seconds
Limb Ataxia: 0-Absent
Sensation: 0-Normal
Best Language: 1-Mild aphasia
Dysarthria: 1-Mild slurring
Extinction and Inattention: 0-No abnormality
Total Score:: 2
Modified Michael (mRS) Score
Modified [place] Scale (mRS): No significant disability. Able to carry out usual activities.
Score: 1
Alteplase Contraindication
Inclusion and Exclusion criteria reviewed: Yes

Documented by User: Roberto Askew MD 06/17/24 17:05
NIH Stroke Score
NIH Stroke Score
Total Score:: 2
Modified [place] (mRS) Score
Score: 1
--- NOTE | 2024-06-17 15:40 | W.PN.UPDATE ---
Update Note
Progress Note Update
Pain seen in the afternoon for hyperglycemia. Upon talking with the patient it was noted that he had some word finding issues along with some visual field disturbances. No focal motor deficits or facial asymmetry was noted, however a stroke alert
was called. Patient was seen by neurology and taken for CAT scan which was negative for hemorrhage. Neurology recommended EEG and starting Keppra along with eventual MRI of the head. By the time the patient returned from CAT scan neurological
status was at baseline.
[2024-06-17 16:19] LABS: TSH Reflex To Free T4 1.04 uIU/ml (0.47-4.68)
[2024-06-17 16:23] LABS: Ferritin 77.6 ng/ml (17.9-464.0)
[2024-06-17 16:30] LABS: Glucose - Point of Care 225 mg/dl (70-99)
[2024-06-17] MEDS: LIPITOR 40 MG PO (17:06)
[2024-06-17] MEDS: NOVOLOG FLEXPEN-LOW RESISTANCE 2 UNITS SC (17:06)
--- NOTE | 2024-06-17 17:44 | EEG.RPT ---
Electroencephalogram Report
Recording
Date of EE06/17/24
Type of EEG: Routine
Length of EEG recordin minutes
Done with Video Recording: Yes
Patient Status: Inpatient
Recording Conditions: Awake and Drowsy
Hyperventilation Performed: No
Photic Stimulation Performed: Yes
Report
LESS THAN 1 HOUR EEG REPORT
LESS THAN 1 HOUR EEG INTERPRETATION:
Moderately abnormal study for age based on generalized slowing demonstrated bihemispherically equally
CLINICAL CORRELATION:
Although normative values not been established for a person of this advanced age the patient�s symmetry of the background suggests that this study was suggestive of moderate bihemispheric cortical dysfunction.
No epileptiform features were demonstrated.
If concerns remain regarding epilepsy, prolonged monitoring may be of assistance.
Clinical correlation is advised.
METHODS:
A 21-channel digital electroencephalogram (EEG) was performed in the intermediate vascular unit at the bedside. The 10/20 international system of electrode placement was used with ECG and lateral/vertical eye movements recorded.
IMPRESSION(S):
Quality of study
Fair, limited due to muscle artifact
Background
Low amplitude
Anterior-posterior voltage gradient differentiation: fair
Delta frequency maximal background demonstrated
Sleep
Drowsiness present
Hyperventilation
Not performed
Photic Stimulation
Failed to activate the record
ECG
Normal rhythm
Abnormal Activity
None
[2024-06-17 17:54] LABS: Vitamin B12 778 pg/ml (239-931)
--- NOTE | 2024-06-17 18:46 | PTCARENOTE ---
Pt having repeat stroke-like symptoms. Pt w/ aphasia and dysarthria. NIHSS-2. Colby Almanzar made aware and at bedside to assess pt.
[2024-06-17 19:26] LABS: Glucose - Point of Care 183 mg/dl (70-99)
--- NOTE | 2024-06-17 19:32 | PTCARENOTE ---
NIHSS handoff completed. Pt w/ aphasia and dysarthria and unable to answer location questions. Juhi Martin and Colby Almanzar made aware and in to assess pt at bedside. Accu-check performed 183. VSS. Pt appears anxious and c/o nausea. Zofran
administered. See MAR. No further orders placed. Report given to web developer programmer RN.
[2024-06-17] MEDS: ZOFRAN 4 MG IV (19:39)
[2024-06-17 20:04] LABS: Hematocrit 31.2 % (39.0-52.0); Hemoglobin 10.4 g/dL (13.0-18.0); Mean Corp Hgb Conc. 33.3 g/dL (33.0-37.0); Mean Corpuscular Hgb 29.7 pg (27.0-31.0); Mean Corpuscular Volume 89.1 fL (80.0-94.0); Mean Platelet Volume 11.1 fL (7.4-10.4); Platelet Count 152 10^3/uL (130-400); Red Cell Dist. Width 13.6 % (11.5-14.5); White Blood Cell Count 13.1 10^3/uL (4.8-10.8)
[2024-06-17 20:37] LABS: Blood Urea Nitrogen 27 mg/dl (9-20); Calcium 8.7 mg/dl (8.4-10.2); Carbon Dioxide 23 mmol/L (22-30); Chloride 99 mmol/L (98-107); Estimated Creatinine Clearance 52 ml/min; Glucose 132 mg/dl (70-99); Magnesium 1.3 mg/dl (1.6-2.3); Potassium 3.9 mmol/L (3.5-5.1); Sodium 138 mmol/L (135-145); eGFR 50.49
[2024-06-17] MEDS: MAGNESIUM SULFATE 100 IV (21:35)
[2024-06-17] MEDS: KCL 20 MEQ PO (21:36)
[2024-06-17 21:57] LABS: Glucose - Point of Care 114 mg/dl (70-99)
[2024-06-17] MEDS: MELATONIN 5 MG PO (22:17)
[2024-06-18] VITALS (8 sets, daily range): BP systolic 104–132; BP diastolic 47–69; PULSE 100; O2SAT 92–94; BMI 35.5
--- NOTE | 2024-06-18 01:13 | PTCARENOTE ---
Addendum entered by Denae Craft RN 06/18/24 04:17:
0300 Pt able to get OOB with x 1 assist. AAOx3 NIH score 0. Pt stated that he 'doesn't remember what happened last night'
Original Note:
Pt restless and agitated, NIH score 2. pt with expressive aphasia unable to answer most of the questions and became very agitated. Pt placed on BiPAp earlier due to low PlOx in mid to high 80s.
Stat Labs completed and Mag and potassium repleted
22:30 Pt's Temp 100. Tylenol given.
23:45 NIH score 1. Pt still has a trouble to state today's date, but able to read sentences and describe pictures.
[2024-06-18 03:53] LABS: Ionized Calcium 1.11 mMOL/L (1.15-1.33)
[2024-06-18 04:35] LABS: Blood Urea Nitrogen 24 mg/dl (9-20); Calcium 8.5 mg/dl (8.4-10.2); Carbon Dioxide 26 mmol/L (22-30); Chloride 100 mmol/L (98-107); Estimated Creatinine Clearance 48 ml/min; Glucose 147 mg/dl (70-99); HDL Cholesterol 55 mg/dl; LDL Cholesterol, Calculated 47 mg/dl; Magnesium 2.2 mg/dl (1.6-2.3); Potassium 4.2 mmol/L (3.5-5.1); Sodium 138 mmol/L (135-145); Total Cholesterol 128 mg/dl (50-199); Triglyceride 132 mg/dl (10-149); Very Low Density Lipoprotein 26 mg/dl (0-30); eGFR 46.48
[2024-06-18] MEDS: CALCIUM GLUCONATE 100 IV (05:42)
--- NOTE | 2024-06-18 05:46 | W.PN.CT ---
Addendum entered and electronically signed by Jose Tyson MD 06/18/24 09:21:
I saw and examined the patient.
The PA's note was reviewed and I agree with the note.
Comment:
POD#2 s/p R TF TAVR (26 S3)
Neuro event of unclear etiology yesterday (expressive aphagia, unable to recognize , no motor defects). CT-H negative.
Neuro exam this AM back to baseline
ECHO yesterday w/ normal/hyperdynamic LVEF w/ well seated TAVR w/o AI/PVL - mean gradient 14-16mmHg
Continue ASA/plavix
Continue serial neurologic exams
D/C planning for hopefully tomorrow
Original Note:
Today's Communication / Plan
-
Plan:
-Pt back to baseline this AM. Alert and oriented x 3. Moving all extremities appropriately Repleted electrolytes overnight
-Head CT yesterday negative for bleed
-Pt has hx of seizure disorder on Keppra. Also has prior hx of TIA. Neurology following
-Groins C/D/I, no significant hematoma
-Cont. current meds : ASA, Plavix, Lipitor, Cozaar, Prednisone
-No raven or pauses overnight, 1st degree AVB (not new)
-OOB into chair/Ambulate
Assessment / Plan
-
- Severe aortic valve stenosis, symptomatic- s/p Right trans femoral TAVR with a 26mm Andres TAVR valve on 06/16/24, pod #2
- Post TTE: Preop LVEF was 60% and was 65-70% following TAVR without inotropic support. No regional wall motion abnormalities or dyskinesia. The aortic valve was well seated without detectable PVL and mean gradient across the new valve was 14-16mmHg
although he did appear to be hyperdynamic.
- Severe pulmonary fibrosis on baseline supplemental oxygen- on 3L home O2
- Hypertension
- Hyperlipidemia
- Class 2 obesity, BMI 36
- Diabetes
- History of TIA and possibility of atypical seizures
- CKD3 (Cr 1.4 preop)
- Chronic anemia
- Pre-existing 1st degree AVB
Discussed patient care with: Cardiology, Nursing, Respiratory Therapy, Pharmacy and Care Team
Subjective
Procedure
s/p Right trans femoral TAVR with a 26mm Andres TAVR valve on 06/16/24
-
Date of Service: June 18, 2024
Pt c/o mild incisional pain, otherwise feels well. Fully alert and oriented x 3 this AM
Objective Data
-
Lab Results
06/17/24 19:56
06/18/24 03:39
PT 14.3 Sec (11.4-14.6) 06/08/24 12:05
INR 1.11 06/08/24 12:05
APTT 26.2 Sec (23.4-35.0) 06/08/24 12:05
Vital Signs
Vital Signs
Temp Pulse Resp BP Pulse Ox
98.7 F 90 18 124/57 97
06/18/24 03:23 06/18/24 04:30 06/18/24 03:23 06/18/24 03:13 06/18/24 03:23
CT Intake/Output/Weight
06/17/24 06/17/24 06/18/24
06:59 18:59 06:59
Intake Total 200 / 650 450 / 650
Output Total 200 / 525 325 / 525
Balance 0 / 125 125 / 125
SaO2: 97 (CPAP)
Physical Exam
-
General: Awake, Oriented and AOx3
Cardiovascular: Regular rate & rhythm, No Murmurs and No Gallop
Respiratory: Decreased Breath Sounds
Incision: Clean, Dry, Intact and Dressing Intact
Extremities: No Edema
Data Reviewed
-
Lab Results: Results Reviewed
Medications: Active Meds Reviewed
Chest X-Ray: Report Reviewed and Image Reviewed
ECG: Report Reviewed and Image Reviewed
[2024-06-18 07:23] LABS: Glucose - Point of Care 139 mg/dl (70-99)
[2024-06-18] MEDS: NOVOLOG FLEXPEN-LOW RESISTANCE SC (07:25)
[2024-06-18] MEDS: ASPIR LOW (ENTERIC COATED) 81 MG PO (07:57)
[2024-06-18] MEDS: CELLCEPT 1500 MG PO ×2 (07:58→19:55)
[2024-06-18] MEDS: THERAGRAN 1 TABLET PO (07:58)
[2024-06-18] MEDS: FLOMAX 0.4 MG PO (07:58)
[2024-06-18] MEDS: DELTASONE 5 MG PO (07:58)
[2024-06-18] MEDS: AMARYL 2 MG PO (07:58)
[2024-06-18] MEDS: MAGNESIUM OXIDE 250 MG PO (07:58)
[2024-06-18] MEDS: COZAAR 25 MG PO (07:58)
[2024-06-18] MEDS: KEPPRA 750 MG PO ×2 (07:58→19:55)
[2024-06-18] MEDS: PLAVIX 75 MG PO (07:58)
[2024-06-18] MEDS: VITAMIN D3 (cholecalciferol) 25 MCG PO (07:58)
[2024-06-18] MEDS: PROTONIX 40 MG PO (07:58)
[2024-06-18] MEDS: FLUSH (NSS) 2 FLUSH IV (08:00)
--- NOTE | 2024-06-18 08:16 | PTOTSP ---
Speech Pathology Screen
Chart reviewed. 79M with admission for s/p Right trans femoral TAVR on 06/16. ILD on home O2. CXR from 06/08 with �moderate predominantly subpleural interstitial airspace disease throughout both lungs most consistent with subpleural interstitial
fibrosis.� CXR on 06/17 with no change. Onset of word finding difficulties 06/17. Head CT with no acute abnormalities, mild cerebral atrophy. NIH 0 per nursing note. MRI of brain planned. No prior [facility] history at . Appears to be back to baseline
per chart review. Please re-consult [facility]MINISTR[facility] service for evaluation if s/s persist.
[2024-06-18] MEDS: SYMBICORT 80/4.5 MCG INHALER 2 PUFF INH ×2 (08:17→19:37)
--- NOTE | 2024-06-18 08:19 | PTCARENOTE ---
Addendum entered by Natty Lehman RN 06/18/24 11:59:
correction, patient on 4L O2
Original Note:
The patient is aaox3, vital sign are stable. 97% on 2L. NIHSS score is a zero. NSR with a 1st degree AVB noted on the monitor. He ambulated to the bathroom x1 assist. His gait is steady. He did get get dyspneic on exertion and his oxygen sat dropped
to 85% on 2L after ambulating. He quickly recovered to 97% at rest. His asked him if he 'sees the birdies' (spots he sees when his oxygen drops) while his oxygen got low. He stated 'just a bit.' He also stated that he did get 'a little dizzy'
after ambulating from the bathroom.
--- NOTE | 2024-06-18 08:35 | W.PN.NEURO.1 ---
Today's Communication / Plan
-
Check MRI of brain in hopes of better understanding if the patient did have a new structural lesion although that is unlikely
Continue levetiracetam at current levels
Avoid sleep deprivation if possible which might encourage more events
Aggressive treatment of head discomfort with the use of prochlorperazine 10 mg IV
Neuro Assessment/Plan
Assessment
Abrupt onset of speech change similar to prior episodes the patient has experienced in the past and was associated with possible focal onset seizures
Differential diagnosis includes migraine with aura as the patient experienced center of head discomfort at the time of symptomatology, seizure although EEG failed to demonstrate epileptiform activities, least likely acute stroke
Plan
Check MRI of brain in hopes of better understanding if the patient did have a new structural lesion although that is unlikely
Continue levetiracetam at current levels
Avoid sleep deprivation if possible which might encourage more events
Aggressive treatment of head discomfort with the use of prochlorperazine 10 mg IV
Will follow pending results
Subjective/Objective
Subjective Data
Date of Service: June 18, 2024
Confusion now resolved. Speech had worsened then resolved by 22:30.
Objective Data
Vital Signs
Temp Pulse Resp BP Pulse Ox
36.9 C 90 16 121/58 97
06/18/24 07:16 06/18/24 08:20 06/18/24 08:20 06/18/24 07:19 06/18/24 08:20
Lab Results
06/17/24 19:56
06/18/24 03:39
PT 14.3 Sec (11.4-14.6) 06/08/24 12:05
INR 1.11 06/08/24 12:05
APTT 26.2 Sec (23.4-35.0) 06/08/24 12:05
Sodium 138 mmol/L (135-145) 06/18/24 03:39
Potassium 4.2 mmol/L (3.5-5.1) 06/18/24 03:39
BUN 24 mg/dl (9-20) H 06/18/24 03:39
Glucose 147 mg/dl (70-99) H 06/18/24 03:39
Calcium 8.5 mg/dl (8.4-10.2) 06/18/24 03:39
Acz-Q-Pezisfkwryb Pept 234 pg/ml 06/08/24 12:05
LDL Cholesterol, Calc 47 mg/dl 06/18/24 03:39
Vitamin B12 778 pg/ml (239-931) 06/17/24 05:13
Patient Allergies
No Known Allergies Allergy (Verified 06/16/24 08:35)
Review of Systems
-
History Source: Patient
All other systems: Reviewed and negative
EENT: Blurry Vision and Decreased Vision (right upper); Negative Swallowing Difficulty
Respiratory: Negative Trouble Breathing
Abdomen/GI: Nausea
Neuro: Headache; Negative Dizzy
Physical Exam
-
General: No Apparent Distress, Appears Stated Age and Wearing Oxygen
Eyes: Round OU, [place] Conjunctivae and No Ptosis
HEENT: Anicteric and Moist Mucous Membranes
Neck: Full Range of Motion
Respiratory: No Dyspnea
Cardiac: No JVD
GI: Non-distended
Skin: Unremarkable
Extremities: No Clubbing, No Cyanosis and No Edema
Psych: Negative Intact Judgement/Insight
Extended Neurological Exam
Mood & Affect: Negative Affect Unremarkable (Argumentative, defensive)
Attention Span & Concentration: Awake, Alert, Interactive and No Difficulty with 2 Step Request
Memory: Unremarkable
Tremor: Hand Tremor Absent and Head Tremor Absent
Speech: Quality Unremarkable, Quantity Unremarkable and Other (Mild to moderate difficulty with repetition of statements)
Cranial Nerve II: Left Eye: Pupillary Size Unremarkable and Visual Partida Grossly Intact
Cranial Nerve II: Right Eye: Pupillary Size Unremarkable and Visual Partida Grossly Intact
Cranial Nerves III, IV, : Extraocular Movement: Grossly Intact
Cranial Nerve VII: Facial Symmetry: Normal Facial Symmetry
Cranial Nerve VIII: Hearing: Unremarkable Hearing to Normal Conversational Volume
Cranial Nerve XI: Shoulder Shrug: Unremarkable
Muscle Strength, Overall: Full in Upper Extremities
Muscle Bulk & Tone: Bulk Unremarkable and Tone Unremarkable
Pronator Drift: No Drift in Upper Extremities
Touch Sensation: Unremarkable
Coordination: Jaqozf-xyrx-aqntns Testing Unremarkable
Data Reviewed
-
CT Head: Report Reviewed
EEG: Report Reviewed
Labs: Report Reviewed
Reviewed with: Physician, Nurse, Patient and Family
Old Records: Summarized
Past History
Past History
ED Past Medical History: HTN, Hypercholesterolemia, Other (Changes in mental status with A-fib, chronic anemia, obesity, interstitial lung disease on home oxygen, peripheral arterial disease) and Other (Left femoral artery aneurysm, right carpal
tunnel syndrome); Negative Renal failure (CKD)
ED Past Surgical History: Cardiac (Have our May 2024) and Other (Left inguinal herniorrhaphy, tooth extractions)
Social History
Tobacco: Former smoker
Alcohol: None
Drug: None
Personal:
Living: with family
Family History
Family History: Other (Reviewed and noncontributory)
[2024-06-18] MEDS: NOVOLOG FLEXPEN-LOW RESISTANCE 1 UNITS SC ×2 (13:13→17:37)
[2024-06-18] MEDS: LIPITOR 40 MG PO (17:36)
--- NOTE | 2024-06-18 17:51 | PTCARENOTE ---
NIHSS has been scored a 0 all shift.
[2024-06-19 04:48] VITALS: BP 112/41
[2024-06-19 05:14] VITALS: BMI 35.1
--- NOTE | 2024-06-19 05:54 | W.PN.CT ---
Addendum entered and electronically signed by Jose Tyson MD 06/19/24 09:25:
I saw and examined the patient.
The PA's note was reviewed and I agree with the note.
Comment:
MRI yesterday w/ acute/subacute left occipital infarct
No events overnight - no sig neuro deficits
Hemodynamically stable
Continue ASA/plavix
OOB/IS/ambulate - PT/OT eval
D/C home
Original Note:
Today's Communication / Plan
-
Plan:
-No major issues overnight. Hemodynamically and neurologically intact
-Head CT 06/17 was negative. MRI obtained yesterday 06/18 showed 2.5 cm acute/subacute left occipital infarct in the inferomedial aspect of the left occipital lobe
-Pt has hx of seizure disorder on Keppra. Also has prior hx of TIA. Neurology following
-Will replete Mg++ and K+ today
-Groins C/D/I, no significant hematoma
-Cont. current meds : ASA, Plavix, Lipitor, Cozaar, Prednisone
-No raven or pauses overnight
-OOB into chair/Ambulate
-Likely home today
Assessment / Plan
-
- Severe aortic valve stenosis, symptomatic- s/p Right trans femoral TAVR with a 26mm Andres TAVR valve on 06/16/24, pod #3
- Post TTE: Preop LVEF was 60% and was 65-70% following TAVR without inotropic support. No regional wall motion abnormalities or dyskinesia. The aortic valve was well seated without detectable PVL and mean gradient across the new valve was 14-16mmHg
although he did appear to be hyperdynamic.
- Severe pulmonary fibrosis on baseline supplemental oxygen- on 3L home O2
- Hypertension
- Hyperlipidemia
- Class 2 obesity, BMI 36
- Diabetes
- History of TIA and possibility of atypical seizures
- CKD3 (Cr 1.4 preop)
- Chronic anemia
- Pre-existing 1st degree AVB
-Acute postop stroke, 2.5 cm acute/subacute left occipital infarct in the inferomedial aspect of the left occipital lobe
Discussed patient care with: Cardiology, Nursing, Respiratory Therapy, Pharmacy and Care Team
Subjective
Procedure
s/p Right trans femoral TAVR with a 26mm Andres TAVR valve on 06/16/24
-
Date of Service: June 19, 2024
No issues overnight, denies CP/SOB
Objective Data
-
Lab Results
06/17/24 19:56
PT 14.3 Sec (11.4-14.6) 06/08/24 12:05
INR 1.11 06/08/24 12:05
APTT 26.2 Sec (23.4-35.0) 06/08/24 12:05
Vital Signs
Vital Signs
Temp Pulse Resp BP Pulse Ox
98.4 F 80 22 112/41 95
06/19/24 04:47 06/19/24 05:00 06/19/24 04:47 06/19/24 04:48 06/19/24 04:47
CT Intake/Output/Weight
06/18/24 06/18/24 06/19/24
06:59 18:59 06:59
Intake Total 450 / 650 360 / 510 150 / 510
Output Total 325 / 525 325 / 1150 825 / 1150
Balance 125 / 125 35 / -640 -675 / -640
SaO2: 95 (CPAP)
Physical Exam
-
General: Awake, Oriented and AOx3
Cardiovascular: Regular rate & rhythm, No Murmurs, No Rub and No Gallop
Respiratory: Decreased Breath Sounds (at bases, otherwise clear)
Sternum: Stable
Incision: Clean, Dry and Intact
Extremities: Other (+trace edema)
Data Reviewed
-
Lab Results: Results Reviewed
Medications: Active Meds Reviewed
Chest X-Ray: Report Reviewed and Image Reviewed
ECG: Report Reviewed and Image Reviewed
--- NOTE | 2024-06-19 06:15 | PTCARENOTE ---
Pt. NSR on monitor. NIH scored 0. Pt denies ant pain or discomfort. x1 assist. Using own BiPAP overnight. Safety measures in place.
[2024-06-19 06:27] LABS: Blood Urea Nitrogen 26 mg/dl (9-20); Calcium 8.4 mg/dl (8.4-10.2); Carbon Dioxide 27 mmol/L (22-30); Chloride 100 mmol/L (98-107); Estimated Creatinine Clearance 52 ml/min; Glucose 136 mg/dl (70-99); Magnesium 1.7 mg/dl (1.6-2.3); Potassium 3.7 mmol/L (3.5-5.1); Sodium 138 mmol/L (135-145); eGFR 50.49
[2024-06-19 07:13] VITALS: BP 118/61
[2024-06-19] MEDS: NOVOLOG FLEXPEN-LOW RESISTANCE SC (08:16)
[2024-06-19] MEDS: KEPPRA 750 MG PO (08:17)
[2024-06-19] MEDS: PROTONIX 40 MG PO (08:17)
[2024-06-19] MEDS: ASPIR LOW (ENTERIC COATED) 81 MG PO (08:17)
[2024-06-19] MEDS: FLOMAX 0.4 MG PO (08:17)
[2024-06-19] MEDS: FLUSH (NSS) 2 FLUSH IV (08:17)
[2024-06-19] MEDS: VITAMIN D3 (cholecalciferol) 25 MCG PO (08:18)
[2024-06-19] MEDS: THERAGRAN 1 TABLET PO (08:18)
[2024-06-19] MEDS: PLAVIX 75 MG PO (08:18)
[2024-06-19] MEDS: AMARYL 2 MG PO (08:18)
[2024-06-19] MEDS: COZAAR 25 MG PO (08:18)
[2024-06-19] MEDS: MAGNESIUM OXIDE 500 MG PO (08:18)
[2024-06-19] MEDS: CELLCEPT 1500 MG PO (08:18)
[2024-06-19] MEDS: DELTASONE 5 MG PO (08:18)
[2024-06-19] MEDS: MAGNESIUM OXIDE PO (08:19)
[2024-06-19] MEDS: KCL 40 MEQ PO (08:20)
[2024-06-19] MEDS: SYMBICORT 80/4.5 MCG INHALER 2 PUFF INH (08:31)
--- NOTE | 2024-06-19 09:47 | PTCARENOTE ---
The patient is aaox3, VVS, 98% on 4L. NSR with a 1st degree avb noted on the monitor. NIHSS scores a 0. He has no complaints and is anticipating on going home.
[2024-06-19 10:51] LABS: VerifyNow PRU 154 PRU (180-376)
--- NOTE | 2024-06-19 10:56 | W.DCSUMMARY ---
Discharge Summary
Discharge Data
Date of Admission: 06/16/24
Date of Discharge: 06/19/24
-
Pending Results: Yes
Additional Pending Results:
P2Y12
Hospital Course
Patient was admitted electively and underwent right transfemoral transcatheter aortic valve replacement utilizing a 26 mm Andres MARTIN valve. This was done by Dr. South and Dr. Aranda. Please refer to their separately dictated operative report
for complete details postoperative EKG revealed a normal sinus rhythm with a first-degree atrioventricular block which was present preoperatively. Aspirin and Plavix were initiated as planned for post valve anticoagulation.
Postoperative day #1: Transthoracic echocardiogram and electrocardiogram are done and showed a well-functioning valve. Unfortunately the patient did have an early change with visual field deficits as well as word finding difficulties and a stroke
alert was called. CT was negative for acute stroke and the patient does have a history of seizure disorders. He was placed back on his Keppra. He returned to his baseline function within about 2 to 3 hours. Neurology was involved who recommended
an MRI. He was maintained on oxygen which she wears at home.
Postop day #2: MRI reveals an acute/subacute cerebrovascular accident involving the left occipital lobe. Patient reports baseline neurological function. We will monitor the patient today for any other changes in neurostatus. Neurology remains
involved and recommends aspirin and Plavix.
Postoperative day #3: Patient is cleared for discharge to home. I did discuss the case with neurology who recommends continued aspirin and Plavix as well as a P2 Y12 level. They did not feel the patient had to stay while the P2 Y12 level was being
done. They will follow-up and ensure poststroke care in this patient. I reviewed discharge instructions in detail with the patient answered his questions to his satisfaction.
This dictation was created using voice recognition software. Please excuse any phonetic or grammatical errors as a result.
Discharge Plan
-
Patient Disposition: Home (Routine Discharge)
Discharge Diagnosis/Procedures: - Severe aortic valve stenosis, symptomatic-status post right trans femoral TAVR with a 26mm Andres transcatheter aortic valve replacement valve on 06/16/24
-Post transthoracic echocardiogram: Preop left ventricular ejection fraction was 60% and was 65-70% following transcatheter aortic valve replacement without inotropic support. No regional wall motion abnormalities or dyskinesia. The aortic valve was
well seated without detectable perivalvular leak and mean gradient across the new valve was 14-16mmHg although he did appear to be hyperdynamic.
- Severe pulmonary fibrosis on baseline supplemental oxygen- on 3 L home oxygen
- Hypertension
- Hyperlipidemia
- Class 2 obesity, body mass index 36
- Diabetes
- History of transient ischemic attack and possibility of atypical seizures
-Chronic kidney disease stage III (creatinine 1.4 preop)
- Chronic anemia
- Pre-existing 1st degree atrioventricular block
-Acute postop cerebrovascular accident, 2.5 cm acute/subacute left occipital infarct in the inferomedial aspect of the left occipital lobe
Condition: Good
Diet: Low Fat, Low Cholesterol and 2 Gram Sodium
Activity: As tolerated
Driving Restrictions: No driving for 1 week
Bathing Restrictions: OK to Shower
Others Tests: Your 30-day follow echocardiogram: 07/18/2024 @ 11:[address] Cisneros's office
Other Services: Cardiac Rehab
Wound Care: NO lotions, powders, or creams to puncture sites
Specialty Instructions: Weigh Daily- Call MD for wt gain/loss 3 lbs overnight/5 lbs in 1 week
Referrals:
CT Transitional Care Nurse [Outside] - in one to two days
(
The Cardiothoracic Transitional Care Nurse will call you to set up a visit in 1-2 days.)
Bartolo Cisneros MD [Active] - 07/13/24 3:40 pm
Moises Ruiz MD [Family Provider] - in four to six weeks (Please make an appointment in four to six weeks. )
Reynaldo Sanchez MD [Active] -
Mundo South MD [Active] -
Prescriptions:
New
acetaminophen 325 mg Tablet
650 mg PO Q6HPRN PRN (Reason: HOWARD, mild pain, or fever >101F) Qty: 0 0RF
Continued
losartan 50 mg Tablet
25 mg PO DAILY
furosemide [Lasix] 40 mg Tablet
40 mg PO PRN PRN (Reason: swelling)
simvastatin 10 mg Tablet
10 mg PO QPM
prednisone 5 mg Tablet
5 mg PO DAILY
clopidogrel [Plavix] 75 mg Tablet
75 mg PO DAILY
mycophenolate mofetil 500 mg Tablet
1,500 mg PO BID
tamsulosin 0.4 mg Capsule
0.4 mg PO DAILY
magnesium 250 mg Tablet
250 mg PO DAILY
levetiracetam 750 mg Tablet
750 mg PO BID
budesonide-formoterol [Symbicort] 80-4.5 mcg/actuation Hfa Aerosol Inhaler
2 puff INHALATION BID
aspirin 81 mg Capsule
81 mg PO DAILY
mecobalamin (vitamin B12) 1,000 mcg Tablet,Chewable
1,000 mcg PO DAILY
omeprazole 40 mg Capsule,Delayed Release(Dr/Ec)
40 mg PO DAILY
cholecalciferol (vitamin D3) [Vitamin D3] 25 mcg (1,000 unit) Tablet
25 mcg PO DAILY
melatonin 2.5 mg Tablet,Chewable
5 mg PO HS PRN (Reason: sleep)
Probiotic 10 billion cell Capsule
10,000 mmu cells PO ONCE
Discharge Orders:
Discharge Patient (As Directed); Ordered 06/19/24
Ordered By: Song Romo
Care Plan Goals
Care Plan Goals:
Problem: Readiness for enhanced knowledge related to diagnosis and treatment plan
Goal: Understand your diagnosis and treatment plan needs, including medications if applicable.
Instructions: Know your diagnosis, underlying causes and treatment plan options, including medications if applicable. Consult with your health care team to learn about your diagnosis and treatment plan, including medications if applicable.
Discharge Date and Time
Print Language: SRI LANKAN
[2024-06-19 11:08] VITALS: BP 113/48
[2024-06-19 11:44] LABS: VerifyNow Aspirin 390 ARU
[2024-06-19 12:03] LABS: Glucose - Point of Care 213 mg/dl (70-99)
[2024-06-19] MEDS: NOVOLOG FLEXPEN-LOW RESISTANCE 2 UNITS SC (13:13)
--- NOTE | 2024-06-19 14:06 | PTCARENOTE ---
Patient discharged home.
[2024-06-20 17:28] LABS: Glucose - Point of Care 182 mg/dl (70-99)
[2024-06-20 17:28] LABS: Glucose - Point of Care 131 mg/dl (70-99)
[2024-06-20 17:28] LABS: Glucose - Point of Care 142 mg/dl (70-99)
[2024-06-20 17:28] LABS: Glucose - Point of Care 190 mg/dl (70-99)
== END 2024-06-19 14:07 | disposition home or self-care (01) | DRG 266 ==
LOC: IVU 07:25
PROVIDERS: Physician Assistant; Physician Assistant Medical; Registered Nurse Critical Care Medicine; ADMITTING PHYSICIAN Thoracic Surgery (Cardiothoracic Vascular Surgery); CONSULT PHYSICIAN Psychiatry & Neurology Neurology; FAMILY PHYSICIAN Internal Medicine; REFERRING PHYSICIAN Internal Medicine Cardiovascular Disease
PROC: 02RF38Z Replacement of Aortic Valve with Zooplastic Tissue, Percutaneous Approach (ICD-10-PCS; 2024-06-16)
DX: I35.0 Nonrheumatic aortic (valve) stenosis (principal); I63.89 Other cerebral infarction; I97.820 Postprocedural cerebrovascular infarction following cardiac surgery; J96.10 Chronic respiratory failure, unspecified whether with hypoxia or hypercapnia; I12.9 Hypertensive chronic kidney disease with stage 1 through stage 4 chronic kidney disease, or unspecified chronic kidney disease; N18.30 Chronic kidney disease, stage 3 unspecified; E78.5 Hyperlipidemia, unspecified; E66.812 Obesity, class 2; E11.22 Type 2 diabetes mellitus with diabetic chronic kidney disease; D63.1 Anemia in chronic kidney disease; J84.10 Pulmonary fibrosis, unspecified; E11.51 Type 2 diabetes mellitus with diabetic peripheral angiopathy without gangrene; E11.65 Type 2 diabetes mellitus with hyperglycemia; I44.0 Atrioventricular block, first degree; G40.909 Epilepsy, unspecified, not intractable, without status epilepticus; Y83.2 Surgical operation with anastomosis, bypass or graft as the cause of abnormal reaction of the patient, or of later complication, without mention of misadventure at the time of the procedure; H53.40 Unspecified visual field defects; R29.702 NIHSS score 2; R47.1 Dysarthria and anarthria; Z68.35 Body mass index [BMI] 35.0-35.9, adult; Z79.02 Long term (current) use of antithrombotics/antiplatelets; Z79.82 Long term (current) use of aspirin; Z79.899 Other long term (current) drug therapy; Z82.0 Family history of epilepsy and other diseases of the nervous system; Z86.73 Personal history of transient ischemic attack (TIA), and cerebral infarction without residual deficits; Z87.891 Personal history of nicotine dependence; Z99.81 Dependence on supplemental oxygen
CPT/HCPCS: 93308; 33361; 36415; 70450; 70551; 71045; 71046; 80048; 80053; 80061; 81003; 81015; 82248; 82330; 82607; 82728; 82746; 82947; 82962; 83036; 83735; 83880; 84443; 85025; 85027; 85347; 85576; 85610; 85730; 86850; 86900; 86901; 86920; 87070; 93005; 93306; 93321; 93325; 94640; 95816; C1760; C1769; C1894; Q9967

== ENCOUNTER 2024-06-22 23:13 | Observation (INO) | payer OTHER, SELFPAY ==
[2024-06-22 14:36] VITALS: BP 123/103
[2024-06-22 15:12] LABS: % Basophils 0.4 % (0-2); % Eosinophils 1.1 % (0-6); % Immature Granulocytes 0.7 % (0-0.5); % Lymphocytes 6.2 % (20.5-51.1); % Monocytes 5.2 % (1.7-9.3); % Neutrophils 86.4 % (42.2-75.2); Absolute Eosinophils 0.1 10^3/uL (0-0.7); Absolute Immature Granulocytes 0.1 10^3/uL (0-0.05); Absolute Lymphocytes 0.7 10^3/uL (1.2-3.4); Absolute Monocytes 0.6 10^3/uL (0.1-0.6); Absolute Neutrophils 9.3 10^3/uL (1.4-6.5); Hematocrit 28.3 % (39.0-52.0); Hemoglobin 9.4 g/dL (13.0-18.0); Mean Corp Hgb Conc. 33.2 g/dL (33.0-37.0); Mean Corpuscular Hgb 28.5 pg (27.0-31.0); Mean Corpuscular Volume 85.8 fL (80.0-94.0); Mean Platelet Volume 10.6 fL (7.4-10.4); Nucleated Red Blood Cells % 0 % (-); Platelet Count 187 10^3/uL (130-400); Red Cell Dist. Width 13.8 % (11.5-14.5); White Blood Cell Count 10.7 10^3/uL (4.8-10.8)
--- NOTE | 2024-06-22 15:22 | ED.GENMED ---
History of Present Illness
General
Chief Complaint: Breathing Problem
Source: patient, records and family
Exam Limitations: none
Time Seen by Provider: 06/22/24 15:09
Nursing documentation reviewed up to this point in time: agreed with
History of Present Illness
History of Present Illness:
79-year-old male with a past medical history of hypertension, hyperlipidemia, PAD, CKD, diabetes, aortic stenosis status post recent TAVR which was unfortunately complicated by subsequent small CVA who presents to the emergency room for evaluation
of shortness of breath. Patient was just admitted to this hospital 06/16/2024 until 06/19/2024�he was admitted for elective TAVR for significant aortic stenosis, procedure completed 06/[address] and Dr. Aranda. He had postoperative visual
disturbance and MRI revealed left occipital lobe CVA. Fortunately neurologic symptoms significantly improved/essentially resolved he was ultimately discharged home after consultation with neurology. He says that since returning home he has noticed
increased shortness of breath with exertion. He cites that he can walk up the stairs without significant shortness of breath and having to rest for a few minutes. Apparently today visiting nurse came and he was winded after just standing up to
step on the scale for weight check and he was referred to the emergency room to be evaluated. He has not had any chest pain. He has not had any increased edema. He has not noticed any weight gain since discharge�in fact he believes he has lost 5
to 10 pounds since discharge. He denies any recent cough, fevers, chills. He denies any other complaints. He has been on aspirin and Plavix since his procedure and reports compliance. Of note patient has chronic oxygen requirement 3 L at
baseline due to pulmonary fibrosis�he reports that he has been increasing it to 4 L over the past few days for symptomatic relief.
Past History
Past History
ED Past Medical History: HTN, Hypercholesterolemia, Other (Changes in mental status with A-fib, chronic anemia, obesity, interstitial lung disease on home oxygen, peripheral arterial disease) and Other (Left femoral artery aneurysm, right carpal
tunnel syndrome); Negative Renal failure (CKD)
ED Past Surgical History: Cardiac (Have our May 2024) and Other (Left inguinal herniorrhaphy, tooth extractions)
Social History
Tobacco: Former smoker
Alcohol: None
Drug: None
Personal:
Living: with family
Family History
Family History: Other (Reviewed and noncontributory)
Review of Systems
Review of Systems
All Other Systems: ROS reviewed and negative except as documented in HPI and ROS
Constitutional: Reports fatigue; Denies fever or chills
Respiratory: Reports trouble breathing; Denies cough
Cardiac: Denies chest pain, palpitations or syncope
ABD/GI: Denies abdominal pain, nausea or vomiting
: Denies flank pain
Musculoskeletal: Denies edema, neck pain or back pain
Neurological: Denies dizzy or headache
Phy Exam
Physical Exam
Physical Exam:
General: Awake, alert, oriented x3; no acute distress
Head: Normocephalic, atraumatic
Eyes: Conjunctiva normal, sclera anicteric
Throat: Airway intact, handling secretions
Neck: Trachea midline, no JVD
Lungs: Mild tachypnea but no increased work of breathing, normal oxygen saturations on 3 L nasal cannula here in the emergency room; lung sounds clear to auscultation bilaterally, no wheezing, rales, rhonchi
Heart: Regular rate and rhythm, midsystolic murmur
Abd: Soft, non distended, nontender
Neuro: No gross deficits
Skin: no rash
Extremities: No edema in extremities, equal pulses in all extremities
Scores
Heart Failure Risk
Heart Failure Risk Score: Not Applicable
Heart Score for Chest Pain Patients
STEMI patient?: Not applicable
Withdrawal Assessment of Alcohol
Withdrawal Assessment Completed?: Not applicable
Course
Orders/Labs/Results
Orders:
Orders
06/22/24
DH LUMASON 5mL Routine
06/22/24 14:40
ECG [Electrocardiogram (*1)] Urgent
Reason for Study: Shortness of Breath
EKG- Treatment ONCE
CR Chest - 2 Views Urgent
Comment:
Reason For Exam: SOB
06/22/24 14:54
BNP [NT-proBNP] Urgent
Complete Blood Count/With Diff Urgent
Comprehensive Metabolic Panel Urgent
06/22/24 15:35
Echo Follow up Study W Dop Urgent
Cardiology Consult: Eric Ortega
06/22/24 17:17
DH LUMASON 5mL Routine
06/22/24 19:23
CT Chest Pe Study Urgent
Comment:
Reason For Exam: sob
Abnormal Lab Results
06/22/24
14:54
RBC 3.30 L 10^6/uL
(4.70-6.10)
Hgb 9.4 L g/dL
(13.0-18.0)
Hct 28.3 L %
(39.0-52.0)
MPV 10.6 H fL
(7.4-10.4)
Abs Immat Gran (auto) 0.1 H 10^3/uL
(0-0.05)
Absolute Neuts (auto) 9.3 H 10^3/uL
(1.4-6.5)
Absolute Lymphs (auto) 0.7 L 10^3/uL
(1.2-3.4)
Immature Gran % 0.7 H %
(0-0.5)
Neutrophils % 86.4 H %
(42.2-75.2)
Lymphocytes % 6.2 L %
(20.5-51.1)
Carbon Dioxide 21 L mmol/L
(22-30)
BUN 24 H mg/dl
(9-20)
Glucose 206 H mg/dl
(70-99)
06/22/24 14:54
10/30/24 14:54
Vital Signs
Initial and Last Documented VS:
Initial Vital Signs
Temp Pulse Resp BP Pulse Ox
36.8 C 88 20 123/103 99
06/22/24 14:36 06/22/24 14:36 06/22/24 14:36 06/22/24 14:36 06/22/24 14:36
Last Documented Vital Signs
Temp Pulse Resp BP Pulse Ox
36.8 C 73 27 123/103 98
06/22/24 14:36 06/22/24 19:15 06/22/24 19:15 06/22/24 14:36 06/22/24 19:15
MDM/Problems Addressed
Differential Diagnosis Includes:
CHF/pulmonary edema, symptomatic anemia, pneumonia, deconditioning, PE considered somewhat less likely
MDM/Problems Addressed:
79-year-old male presents to the emergency room for evaluation of increased shortness of breath since discharge from hospital after elective TAVR. Mildly hypertensive and mild tachypnea but otherwise normal vitals�oxygen saturation 97% on 3 L nasal
cannula which is his baseline. He has been trying oxygen up at home for symptomatic relief. Physical exam is as documented today. Will place an IV check labs including a CBC and a CMP. Check proBNP. Check a chest x-ray and EKG. Case discussed
with CT surgery, recommending repeat echocardiogram. Discussed with cardiology to facilitate. Monitor closely reassess after the above.
Labs reviewed: CBC shows marginal anemia to 9.4 only minimally lower than prior unlikely accounts for his acute symptoms. CMP no clinically significant abnormalities. proBNP not elevated. Chest x-ray shows interstitial lung disease but no acute
pathology. Echocardiogram shows no significant change from prior. He does remain tachypneic with increased subjective dyspnea and with recent procedure will check CTA to rule out PE. Patient's family very concerned about his degree of dyspnea
with exertion, pending CTA will plan to admit for observation and cardiology consultation.
Chronic conditions affecting care:
AF status post TAVR, pulmonary fibrosis
Acute Exacerbation and/or Progression of Chronic Illness:
Acutely hypertensive
Acute Exacerbation and/or Progression of Chronic Illness: HTN
*Radiology
Radiology exam reviewed: preliminary read by ED provider and radiology read reviewed
*Pulse Oximetry
Patient hypoxic: no
*EKG
Interpreted by ED Provider?: Yes
Heart Rate: 86
Rate: normal
Rhythm: sinus
Interval: first degree heart block
QRS Pattern: normal QRS
Ischemia: no ischemia
*Critical Care Note
Total Time (30-74mins, 75-104mins- exclusive of procedures): Not Applicable
Data Reviewed
Source: patient, records and family
Patient Management
Discussion with other providers: Hospitalist (Discussed with hospitalist) and Car Wash Attendant (Discussed with CT surgeon, discussed with cardiology)
Escalation/DeEscalation of care consider admission/obs:
Admission indicated
ED Attending Note
-
Portions of this chart may have been created with voice recognition software.� Occasional wrong word or��sound alike� substitutions may have occurred due to the inherent limitations of voice recognition software.
Discharge Plan
Departure
Prescriptions:
No Action
losartan 50 mg Tablet
25 mg PO DAILY
furosemide [Lasix] 40 mg Tablet
40 mg PO PRN PRN (Reason: swelling)
simvastatin 10 mg Tablet
10 mg PO QPM
prednisone 5 mg Tablet
5 mg PO DAILY
clopidogrel [Plavix] 75 mg Tablet
75 mg PO DAILY
mycophenolate mofetil 500 mg Tablet
1,500 mg PO BID
tamsulosin 0.4 mg Capsule
0.4 mg PO DAILY
magnesium 250 mg Tablet
250 mg PO DAILY
levetiracetam 750 mg Tablet
750 mg PO BID
budesonide-formoterol [Symbicort] 80-4.5 mcg/actuation Hfa Aerosol Inhaler
2 puff INHALATION BID
aspirin 81 mg Capsule
81 mg PO DAILY
mecobalamin (vitamin B12) 1,000 mcg Tablet,Chewable
1,000 mcg PO DAILY
omeprazole 40 mg Capsule,Delayed Release(Dr/Ec)
40 mg PO DAILY
cholecalciferol (vitamin D3) [Vitamin D3] 25 mcg (1,000 unit) Tablet
25 mcg PO DAILY
melatonin 2.5 mg Tablet,Chewable
5 mg PO HS PRN (Reason: sleep)
Probiotic 10 billion cell Capsule
10,000 mmu cells PO ONCE
acetaminophen 325 mg Tablet
650 mg PO Q6HPRN PRN (Reason: HOWARD, mild pain, or fever >101F) Qty: 0 0RF
Referrals:
Moises Ruiz MD [Family Provider] -
Interventions
Interventions:
*Risk Screen - Suicide Last Done: 06/22/24 15:10
*General Assessment Last Done: 06/22/24 14:36
*Neglect/Abuse Screening Last Done: 06/22/24 15:10
ED- Fall Risk Assessment Last Done: 06/22/24 15:10
ED- Cardiac Assessment Last Done: 06/22/24 15:10
ED- Pulmonary Assessment Last Done: 06/22/24 15:10
Discharge Date and Time
Print Language: COLOMBIAN
[2024-06-22 15:27] LABS: ALT (SGPT) 20 U/L (0-50); AST (SGOT) 23 U/L (17-59); Alkaline Phosphatase 105 U/L (38-126); Blood Urea Nitrogen 24 mg/dl (9-20); Calcium 8.6 mg/dl (8.4-10.2); Carbon Dioxide 21 mmol/L (22-30); Chloride 105 mmol/L (98-107); Glucose 206 mg/dl (70-99); Potassium 4.4 mmol/L (3.5-5.1); Sodium 139 mmol/L (135-145); Total Bilirubin 0.5 mg/dl (0.2-1.3); Total Protein 6.4 g/dl (6.3-8.2); eGFR 55.19
[2024-06-22 15:36] LABS: NT-proBNP 108 pg/ml
--- NOTE | 2024-06-22 17:22 | CARDSERVLU ---
Echocardiogram with Lumason completed after protocol screening completed. Allergies verified.
Patent IV site: __LEFT AC___
IV site flushed with 0.9% NaCl pre and post administration.
Diluted bolus method utilized to enhance visualization of ventricular owens.
Total volume given: __4__ mL
Patient tolerated all procedures well without complications.
[2024-06-22 19:24] VITALS: BP 123/65
[2024-06-22 20:00] VITALS: BP 129/63
[2024-06-22 21:00] VITALS: BP 119/57
--- NOTE | 2024-06-22 21:48 | HPS.HSE ---
Family Physician
-
Family Physician: Moises Ruiz
Chief Complaint
-
Shortness of breat
History of Present Illness
Patient is a 79-year-old male with past medical history significant for hypertension, hyperlipidemia, ILD on home O2 3Land obesity who presented to [facility] today follow recommendation from visiting nurse and cardiothoracic surgeon. Patient was
discharged 06/19/2024 s/p TAVR. He states he was not feeling great when he got home Thursday and no better Thursday, he called cardiothoracic surgeon Thursday who recommended him return to the hospital, patient stated he felt he did not need to be here so
he stayed home. Since discharge he has noticed significant increase of dyspnea with exertion to where he needed to take a rest just walking a short distance. Today his visiting nurse arrived and was stated she did not feel he looked well, she called
and spoke with doctors who all recommended he come to ED for evaluation. Patient then decided he would come for evaluation. He denies any fever, chills, cough, chest pain, nausea, vomiting, constipation, diarrhea, or urinary symptoms.
Medical History
Past Medical History
Past Medical History: Reports Other
Additional Past Medical History:
Hypertension
Hyperlipidemia
ILD on home O2 3L
aortic valve stenosis
Obesity
Past Surgical History: Reports Other
Additional Past Surgical History:
TAVR
Social History
Tobacco: Former Smoker (quit 4 years ago)
Alcohol: Occasional (a couple beers a month)
Drug: None
Personal:
Living: With Family
Employment: Retired
Family History
Family History: Other (Mother and materal uncle: seizure disorder; Sister: brain aneurysm)
Allergies / Home Medications
Allergies reflects when Allergies were last updated in [facility].
Home Medications with original date entered in [facility]
Allergy/Medication List:
Allergies
Allergy/AdvReac Type Severity Reaction Status Date / Time
No Known Allergies Allergy Verified 06/22/24 14:36
Home Medications
clopidogrel 75 mg tablet (Plavix) 75 mg PO DAILY Blood Clot Prevention/Tx 05/05/24
furosemide 40 mg tablet (Lasix) 40 mg PO DAILYPRN PRN swelling 05/05/24
levetiracetam 750 mg tablet 750 mg PO BID Seizures 05/05/24
magnesium 250 mg tablet 250 mg PO DAILY Supplement 05/05/24
mycophenolate mofetil 500 mg tablet 1,500 mg PO BID Transplant 05/05/24
prednisone 5 mg tablet 5 mg PO DAILY Transplant 05/05/24
simvastatin 10 mg tablet 10 mg PO HS High Cholesterol 05/05/24
tamsulosin 0.4 mg capsule 0.4 mg PO HS Urinary Issue 05/05/24
cholecalciferol (vitamin D3) 25 mcg (1,000 unit) tablet (Vitamin D3) 25 mcg PO DAILY Supplement 06/07/24
omeprazole 40 mg capsule,delayed release 40 mg PO HS Gastrointestinal Issue 06/07/24
melatonin 2.5 mg chewable tablet 5 mg PO HSPRN PRN sleep 06/16/24
acetaminophen 325 mg tablet 650 mg (2 x 325 mg) PO Q6HPRN PRN HOWARD, mild pain, or fever >101F #0 tabs 06/17/24
Lactobac no.2-Bifidobac no.1-S. thermo 112.5 billion cell capsule (Visbiome) 1 cap PO DAILY 06/22/24
aspirin 81 mg tablet,delayed release 81 mg PO DAILY 06/22/24
budesonide-formoterol HFA 160 mcg-4.5 mcg/actuation aerosol inhaler (Symbicort) 2 puff inhalation R BID 06/22/24
cyanocobalamin (vitamin B-12) 1,000 mcg tablet 1,000 mcg PO DAILY 06/22/24
fluticasone propionate 50 mcg/actuation nasal spray,suspension 1 spray intranasal DAILYPRN PRN congestion 06/22/24
losartan 25 mg tablet 25 mg PO DAILY 06/22/24
Review of Systems
-
History Source: Patient
Constitutional: Reports No Symptoms
EENT: Reports No Symptoms
Respiratory: Reports Trouble Breathing (significantly increased dyspnea with exertion)
Cardiac: Reports No Symptoms
Abdomen/GI: Reports No Symptoms
: Reports No Symptoms
Musculoskeletal: Reports No Symptoms
Skin: Reports No Symptoms
Neurological: Reports No Symptoms
Endocrine: Reports No Symptoms
Hematologic/Lymphatic: Reports No Symptoms
Psych: Reports No Symptoms
Physical Exam
Vital Signs
Vital Signs
Temp Pulse Resp BP Pulse Ox
98.3 F 83 27 119/57 96
06/22/24 14:36 06/22/24 21:30 06/22/24 21:30 06/22/24 21:00 06/22/24 21:30
Physical Exam
General: Well Developed, Well Nourished, No Apparent Distress, Comfortable and Conversant
HEENT: NormoCephalic, Moist mucous membranes, Atraumatic, PERRLA, [place] Conjunctivae, Nose Appears Normal and Ears Appear Normal
Respiratory: Clear and Decreased Breath Sounds
Cardiac: S1/S2 and Regular Rhythm; No Murmur, Rub or Gallop
Breast: Deferred by me
GI: Soft, Non Tender, Non Distended and Normal Bowel Sounds; No Organomegaly
Rectal: Deferred by Provider
Genito-urinary: Deferred by me
Musculoskeletal: No Clubbing, No Cyanosis and No Edema
Skin: Warm, Dry and IV/Catheter Site; No Rash
Neuro: Awake, Alert, AO x 3, Nonfocal/grossly intact and Cranial Nerves Intact
Hematologic/Lymphatic: No Lymphadenopathy
Psych: Calm and Intact Judgment/Insight
Laboratory Results
-
06/22/24 14:54
06/22/24 14:54
Laboratory Results
Total Bilirubin 0.5 mg/dl (0.2-1.3) 06/22/24 14:54
AST 23 U/L (17-59) 06/22/24 14:54
ALT 20 U/L (0-50) 06/22/24 14:54
Alkaline Phosphatase 105 U/L (38-126) 06/22/24 14:54
Data Reviewed
-
Diagnostic Radiology: Report Reviewed by me (CXR: No acute cardiopulmonary process.)
CT Scan: Report Reviewed by me (Chest: 1. No evidence of pulmonary embolism. 2. Findings in keeping with chronic interstitial lung disease such as usual interstitial pneumonitis.)
Lab Data: Labs Reviewed by me
Impression/Plan
-
IMPRESSION/PLAN:
#ILD on home O2 3L
- home O2 @ 3L continuous
- Admit to M/S for observation
- continue Symbicort
- Consult PT/OT
#aortic valve stenosis
- TAVR 06/16/2024
- continue ASA, mycophenolate, prednisone
#Hypertension
- continue losartan
#Hyperlipidemia
- continue simvastatin
#Obesity
- affects all aspects of care
Full Code
DVT Px: Lovenox Sq
[2024-06-22] MEDS: DUONEB 3 ML INH (22:16)
[2024-06-22] MEDS: SOLU-MEDROL PF 125 MG IV (22:16)
[2024-06-22 23:00] VITALS: BP 128/68
--- NOTE | 2024-06-22 23:15 | W.PN.UPDATE ---
Update Note
Progress Note Update
Patient seen in conjunction with JOHN. I agree with the findings on history and physical. I concur with the assessment and plan stated otherwise
This is a 79-year-old who has a past medical history significant for interstitial lung disease on 3 L oxygen for many years, aortic stenosis will be approximately 1 week status post TAVR, complicated by new left occipital occipital CVA,
hypertension, hyperlipidemia, GERD who presents following discharge with dyspnea on exertion.
Patient had a TAVR and postoperatively the following day he developed blindness transiently. He had MRI which showed a left occipital CVA. Patient was started on Plavix and aspirin. P2 Y was checked at the time with results pending. The
following day the patient was cleared to be discharged home. Patient reports that after getting home he did have some difficulty due to dyspnea on exertion that appeared worse than at his baseline. Initially was asked to come back to the hospital
the following day the patient felt that he was fine at he could wait for some time. However as the days progressed he continued to have a dyspnea on exertion. He denied having any cough. He has been no fevers or chills. He is not having any
wheezing. He has no known sick contacts. He denies any focal weakness. Denies any lower extremity swelling or calf tenderness. He denies having any chest pain orthopnea or PND. He denies nausea vomiting or diaphoresis.
In the emergency department he was afebrile, blood pressure was 120/60 and oxygen saturation was 96% on 3 L. ECG showed normal sinus rhythm with a 4 degree AV block. No acute ischemic changes. Troponin was negative. BNP was 100. He had a chest
x-ray which showed no acute findings. CBC was unchanged from prior with hemoglobin of 9.4 which is about 1 g lower than his baseline. Platelet count was normal. Chemistries shows creatinine of 1.3 which is his baseline otherwise electrolytes are
within normal limits. Had a CT PE which was negative for PE but does show did chronic interstitial lung disease without any other acute findings.
On my admission patient had no increased work of breathing, was saturating 96 to 90% on 2 L. He appeared to have desatted with ambulation previously. Chest tube was notable for mild crackles but otherwise unremarkable. No lower extremity edema.
Assessment and plan
1. SOB - Suspect post-operative with possibly atelectasis. No finding of any acute pulmonary changes. No CHF. No infiltrates. No wheezing or coughing. Satting 96% on home 3 L w/o increased WOB.
- admit to med/surg
- check covid 19 ag
- continue standing therapies for his ILD -> cellcept/prednison/symbicort and prn nebs
- continue home oxygen
- incentive spirometry
- ambulating sats
- PT eval
2. - S/P TAVR. No evidence of CHF.
- aspirin/statin
- continue bp control with losartan
3. CVA - recent post procedure cva. Visual deficit transiently resolved after 1 hour. Stroke seen on MRI
- continue aspirin/plavix/statin
- on keppra for seizure ppx
4. Anemia - Normocytic, chronic and slightly decreased. WBC and plt normal. May contribute slightly to dyspneic feeling despite maintaining sats
- check iron panel, folate and b12,
- ldh, bilirubin
- continue b12, iron based on results above
DVT PPX - lovenox sq
Code Status - Full Code
[2024-06-22 23:59] LABS: COVID-19 Antigen Negative (Negative)
[2024-06-23] VITALS (7 sets, daily range): BP systolic 125–144; BP diastolic 59–73; PULSE 96; O2SAT 97; BMI 34.8
[2024-06-23 01:52] LABS: Glucose - Point of Care 184 mg/dl (70-99)
--- NOTE | 2024-06-23 03:03 | PTCARENOTE ---
Received patient from ED via stretcher into room 2250. Patient ambulated w/ standby assist and used a RW. Denies any dizziness. VSS. Patient sating 93% on 3L of O2 which is pts baseline oxygen requirement. Patient c/o WALLER, lungs clear throughout,
and has an occasional moist cough. Patient oriented to room, call lugo within reach.
[2024-06-23 04:35] LABS: Iron 89 ug/dl (49-181); LDH 390 U/L (120-246); Total Bilirubin 0.5 mg/dl (0.2-1.3)
[2024-06-23 04:44] LABS: Percent Saturation 30 % (20-50); Total Iron Binding Capacity 288 ug/dl (261-462)
[2024-06-23 05:43] LABS: Folate 11.6 ng/ml (2.76-20); Vitamin B12 837 pg/ml (239-931)
--- NOTE | 2024-06-23 07:29 | W.PN.HOSP.TC ---
Documented by User: Jp Dixon MD, Resident 06/23/24 13:02
Today's Communication/Plan
-
Pulmonary consult
Continue supplemental oxygen
PT/OT
Will likely discharge today.
Assessment / Plan
Assessment / Plan
Impression: 79 year old man with history of severe IPF (on 3L home O2) and severe with recent transfemoral TAVR (06/16/24, [facility]/[place]), presenting with worsening shortness of breath on POD #6.
Assessment/plan:
#Presentation with worsening SOB
-Etiology unclear, suspect fluid overload, IPF flare also considered
-TTE unremarkable for valvular pathology.
-Currently on 3 L O2 NC which is his baseline, will continue home oxygen.
-COVID-negative.
-Change Lasix from as needed to 40mg PO daily.
-Cardiology following.
-Given his history of IPF, consider prednisone.
-Pulmonary consult.
-Incentive spirometry
#Interstitial lung disease�IPF
-On 3 L O2 NC baseline at home.
-Pulmonary consult.
-PT/OT.
#Aortic stenosis
-S/p TAVR 06/16/2024 POD #7
-Continue ASA, mycophenolate, prednisone
#History of CVA
-Continue aspirin and Plavix.
#Normocytic anemia
-Chronic, most likely anemia of chronic disease vs idiopathic.
-Iron panel unremarkable.
-B12 and folate WNL
-Follow-up CBC.
#Hypertension
-Continue losartan
#Hyperlipidemia
-Continue simvastatin
DVT prophylaxis-Lovenox
CODE STATUS-full code
Anticipated Discharge: Within 24 hours
Subjective/Interval History
-
Date of Service: June 23, 2024
Patient seen and examined in no cardiopulmonary distress. He reports no chest pain, shortness of breath, palpitations, fever, chills, abdominal pain or nausea or vomiting. He does not have any headaches, no vision changes, no swelling.
Objective Data
-
Labs:
Laboratory Results
06/23/24 06/23/24
03:49 07:27
Sodium Pending
Potassium Pending
Chloride Pending
Carbon Dioxide Pending
BUN Pending
Creatinine Pending
Glucose Pending
Calcium Pending
Total Bilirubin 0.5
Vital Signs:
Vital Signs
Temp Pulse Resp BP Pulse Ox
97.6 F 85 20 130/59 93
06/23/24 01:15 06/23/24 01:15 06/23/24 01:15 06/23/24 01:15 06/23/24 01:30
Review of Systems
-
History Source: Patient
All other systems: Reviewed and negative
Physical Exam
-
General: Well Developed, No Apparent Distress and Comfortable
HEENT: Normocephalic, Atraumatic and Moist Mucous Membranes
Respiratory: Clear to Auscultation
Cardiac: Regular Rhythm and S1/S2; Negative Murmur, Rub or Gallop
GI: Soft, Nontender, Nondistended and Normal Bowel Sounds; Negative Organomegaly
Rectal: Deferred by Provider
Musculoskeletal: No Clubbing, No Cyanosis and No Edema
Skin: Warm; Negative Rash
Neuro: Awake, Alert, Oriented, AO x 3 and Nonfocal/Grossly Intact
Psych: Calm and Intact Judgement/Insight
Data Reviewed
-
Diagnostic Radiology: Image personally visualized and interpreted, Report Reviewed by me and Discussed with Physician
CT Scan: Image personally visualized and interpreted, Report Reviewed by me and Discussed with Physician
Labs: Labs Reviewed by me and Discussed with Physician
Old Records: Reviewed

Documented by User: Pepe Abraham DO 06/23/24 13:26
Assessment / Plan
Assessment / Plan
Impression: 79 year old man with history of severe IPF (on 3L home O2) and severe with recent transfemoral TAVR (06/16/24, [facility]/[place]), presenting with worsening shortness of breath on POD #6.
Assessment/plan:
#Presentation with worsening SOB
-Etiology unclear, suspect fluid overload, IPF flare also considered
-TTE unremarkable for valvular pathology.
-Currently on 3 L O2 NC which is his baseline, will continue home oxygen.
-COVID-negative.
-Change Lasix from as needed to 40mg PO daily.
-Cardiology following.
-Pulmonary consult.
-Incentive spirometry
#Interstitial lung disease�IPF
-On 3 L O2 NC baseline at home.
-Pulmonary consult.
-PT/OT.
#Aortic stenosis
-S/p TAVR 06/16/2024 POD #7
-Continue ASA, mycophenolate, prednisone
#History of CVA
-Continue aspirin and Plavix.
#Normocytic anemia
-Chronic, most likely anemia of chronic disease vs idiopathic.
-Iron panel unremarkable.
-B12 and folate WNL
-Follow-up CBC.
#Hypertension
-Continue losartan
#Hyperlipidemia
-Continue simvastatin
DVT prophylaxis-Lovenox
CODE STATUS-full code
[2024-06-23] MEDS: SYMBICORT 160/4.5 MCG INHALER 2 PUFF INH (08:04)
[2024-06-23 09:18] LABS: % Basophils 0.2 % (0-2); % Immature Granulocytes 0.5 % (0-0.5); % Lymphocytes 2.1 % (20.5-51.1); % Monocytes 1.2 % (1.7-9.3); Absolute Immature Granulocytes 0.1 10^3/uL (0-0.05); Absolute Lymphocytes 0.2 10^3/uL (1.2-3.4); Absolute Monocytes 0.1 10^3/uL (0.1-0.6); Hematocrit 29.6 % (39.0-52.0); Hemoglobin 9.8 g/dL (13.0-18.0); Mean Corp Hgb Conc. 33.1 g/dL (33.0-37.0); Mean Corpuscular Hgb 28.8 pg (27.0-31.0); Mean Corpuscular Volume 87.1 fL (80.0-94.0); Mean Platelet Volume 10.6 fL (7.4-10.4); Nucleated Red Blood Cells % 0 % (-); Platelet Count 213 10^3/uL (130-400); Red Cell Dist. Width 13.7 % (11.5-14.5); White Blood Cell Count 11.4 10^3/uL (4.8-10.8)
[2024-06-23] MEDS: DELTASONE 5 MG PO (09:19)
[2024-06-23] MEDS: PLAVIX 75 MG PO (09:19)
[2024-06-23] MEDS: KEPPRA 250 MG PO (09:19)
[2024-06-23] MEDS: COZAAR 25 MG PO (09:20)
[2024-06-23] MEDS: VISBIOME 1 CAP PO (09:20)
[2024-06-23] MEDS: ASPIR LOW (ENTERIC COATED) 81 MG PO (09:20)
[2024-06-23] MEDS: VITAMIN D3 (cholecalciferol) 25 MCG PO (09:20)
[2024-06-23] MEDS: KEPPRA 500 MG PO (09:21)
[2024-06-23] MEDS: CELLCEPT 1500 MG PO (09:29)
[2024-06-23] MEDS: VITAMIN B-12 1000 MCG PO (09:29)
[2024-06-23 09:48] LABS: Direct Bilirubin 0.1 mg/dl (0.0-0.4)
[2024-06-23 09:52] LABS: ALT (SGPT) 21 U/L (0-50); AST (SGOT) 21 U/L (17-59); Albumin 3.9 g/dl (3.5-5.0); Alkaline Phosphatase 108 U/L (38-126); Blood Urea Nitrogen 23 mg/dl (9-20); Calcium 8.9 mg/dl (8.4-10.2); Carbon Dioxide 22 mmol/L (22-30); Chloride 103 mmol/L (98-107); Estimated Creatinine Clearance 55 ml/min; Glucose 238 mg/dl (70-99); Potassium 4.6 mmol/L (3.5-5.1); Sodium 138 mmol/L (135-145); Total Bilirubin 0.5 mg/dl (0.2-1.3); Total Protein 6.2 g/dl (6.3-8.2); eGFR 55.19
--- NOTE | 2024-06-23 10:37 | CON.CAR ---
Consultation
Consultation Request
Date/Time Consultation Requested: 06/22/24
Date/Time Consultation Performed: 06/23/24
Requesting Provider: Pepe Abraham
Performing Provider: Reynaldo Sanchez
Reason for Consultation: heart failure s/p TAVR
Medical History
-
Chief Complaint: shortness of breath
History of Present Illness:
Mr. 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 Of note, his post-TAVR course was complicated by occipital CVA
on POD #1. MRI on POD #2 demonstrated L occipital lobe acute CVA. Neurology was consulted and recommended ASA/Plavix. TTE post-TAVR was notable for normal functional valve and normal gradients. He was discharged POD#3 to home at which time he had
nearly complete resolution of visual symptoms. Since getting home, he has felt that his shortness of breath with exertion is worsened. He was seen by home nursing who were concerned with his appearance and encouraged him to present to the ED which
he did on 06/22. In the ED he had workup including negative CTPE (which demonstrates findings consistent with know IPF), TTE with normal functioning aortic valve and modestly increased gradients relative to post-TAVR study (28/15 up from 20/11
mmHg). Today he states he has no noticeable worsened shortness of breath above his usual while lying bed. He was compliant with ASA/Plavix at home.
Past Medical History
Past Medical History: CHF, CVA, HTN, Hypercholesterolemia and Valvular Disease (severe s/p TAVR 06/16/24)
Social History
Tobacco: Non-Smoker
Family History
Family History: Reviewed & Not Pertinent
Allergies / Home Medications
Allergy/AdvReac Type Severity Reaction Status Date / Time
No Known Allergies Allergy Verified 06/22/24 14:36
�Medication �Instructions �Recorded �Confirmed �Type
clopidogrel 75 mg tablet (Plavix) 75 mg PO DAILY Blood Clot 05/05/24 06/22/24 History
Prevention/Tx
furosemide 40 mg tablet (Lasix) 40 mg PO DAILYPRN PRN swelling 05/05/24 06/22/24 History
levetiracetam 750 mg tablet 750 mg PO BID Seizures 05/05/24 06/22/24 History
magnesium 250 mg tablet 250 mg PO DAILY Supplement 05/05/24 06/22/24 History
mycophenolate mofetil 500 mg tablet 1,500 mg PO BID Transplant 05/05/24 06/22/24 History
prednisone 5 mg tablet 5 mg PO DAILY Transplant 05/05/24 06/22/24 History
simvastatin 10 mg tablet 10 mg PO HS High Cholesterol 05/05/24 06/22/24 History
tamsulosin 0.4 mg capsule 0.4 mg PO HS Urinary Issue 05/05/24 06/22/24 History
cholecalciferol (vitamin D3) 25 25 mcg PO DAILY Supplement 06/07/24 06/22/24 History
mcg (1,000 unit) tablet (Vitamin
D3)
omeprazole 40 mg capsule,delayed 40 mg PO HS Gastrointestinal Issue 06/07/24 06/22/24 History
release
melatonin 2.5 mg chewable tablet 5 mg PO HSPRN PRN sleep 06/16/24 06/22/24 History
acetaminophen 325 mg tablet 650 mg (2 x 325 mg) PO Q6HPRN PRN 06/17/24 06/22/24 Rx
HOWARD, mild pain, or fever >101F #0
tabs
Lactobac no.2-Bifidobac no.1-S. 1 cap PO DAILY 06/22/24 06/22/24 History
thermo 112.5 billion cell capsule
(Visbiome)
aspirin 81 mg tablet,delayed 81 mg PO DAILY 06/22/24 06/22/24 History
release
budesonide-formoterol HFA 160 2 puff inhalation R BID 06/22/24 06/22/24 History
mcg-4.5 mcg/actuation aerosol
inhaler (Symbicort)
cyanocobalamin (vitamin B-12) 1,000 mcg PO DAILY 06/22/24 06/22/24 History
1,000 mcg tablet
fluticasone propionate 50 1 spray intranasal DAILYPRN PRN 06/22/24 06/22/24 History
mcg/actuation nasal congestion
spray,suspension
losartan 25 mg tablet 25 mg PO DAILY 06/22/24 06/22/24 History
Review of Systems
-
Respiratory: Trouble Breathing
Cardiac: No Symptoms
Neurological: No Symptoms
Physical Exam
Vital Signs
Temp Pulse Resp BP Pulse Ox
36.6 C 91 18 144/62 94
06/23/24 08:00 06/23/24 08:09 06/23/24 08:09 06/23/24 08:00 06/23/24 08:09
Lab Results
06/23/24 09:08
06/23/24 09:05
[id number] Pept 108 pg/ml 06/22/24 14:54
Physical Exam
General: Well Developed and No Apparent Distress
Respiratory: Crackles (fine at bases)
Cardiac: S1/S2, Regular Rhythm and Other (normal valve closure sound)
GI: Soft
Musculoskeletal: No Edema
Skin: Warm
Neuro: AO x 3
Impression / Plan
-
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 Unclear etiology of worsening shortness of breath, which was present immediately on
discharge and then progressed. TTE does not suggest valvular pathology or worsening LV function. He does not examine volume overloaded and weight is down from prior discharge. Gradients are expectedly increased from POD #1 TTE and the same as
intraprocedural gradients, not suggestive of valve failure or HALT. No PE on CT scan. Possibly related to IPF vs. deconditioning. Consider c/w pulmonary if continued worsened SOB otherwise unexplained. Plan:
--> 40 PO lasix qD (will plan to continue this at home for 1 week, then return to usual PRN dosing), daily weights
--> consider Pulm consultation re: possible continuation of IPF flare
--> if no improvement despite above, will consider CT TAVR protocol to assess for HALF but gradient elevation is quite modest and this is unlikely to be a contributor
--> should have close interval cardiology follow up on discharge in <1 month and repeat TTE in 1 month
Data Reviewed
-
EKG: Tracing Personally Visualized and interpreted
Radiology: Image Personally Visualized and interpreted
CT Scan: Image Personally Visualized and interpreted
Ultrasound: Image Personally Visualized and interpreted
Labs: Labs Reviewed by me
--- NOTE | 2024-06-23 12:46 | CM ---
Reviewed chart. Met with and Mrs. Dean to review discharge plans. He states he is having a hard time to breathe. He states prior to admission he resides with his spouse in a two story home with nine steps to enter. He states he has a full
flight of steps to get to bedroom/full bathroom. He states he has a powder room on the first floor. Prior to admission he was independent with ambulation in the home and using a walker or single point cane in the community. He uses home 02 at home
on 3 liters. He has a walker, single point cane, Home 02, portable and concentrator and Inogen machine. He has a bi-pap at home. We reviewed [facility] at home. He is declining [facility] at this time. He has a prescription plan . Medical
work-up in progress. The discharge plan is to return home with his spouse when medically stable.
--- NOTE | 2024-06-23 14:15 | CON.PUL ---
Consultation
Consultation Request
Date/Time Consultation Requested: 06/23/24
Date/Time Consultation Performed: 06/23/24
Performing Provider: Andrew
Reason for Consultation: ILD
Medical History
-
History of Present Illness:
Patient is a 79-year-old male with past medical history significant for hypertension, hyperlipidemia, ILD on home O2 3L, s/p TAVR presenting to [place] ED following recommendation from visiting nurse and cardiothoracic surgeon. Patient was
discharged 06/19/2024 s/p TAVR. Since discharge he has noticed significant increase of dyspnea with exertion to where he needed to take a rest just walking a short distance. Was placed on 6L NC, baseline use of 3L. Had w/u with no trigger, weaned
back down to 3L.
Past Medical History
Past Medical History: Other (see list below)
Social History
Tobacco: Non-smoker
Alcohol: None
Drug: None
Family History
Family History: Reviewed & Not Pertinent
Allergies / Home Medications
Allergies
Allergy/AdvReac Type Severity Reaction Status Date / Time
No Known Allergies Allergy Verified 06/22/24 14:36
Home Medications
�Medication �Instructions �Recorded �Confirmed �Last Taken �Type
clopidogrel 75 mg tablet (Plavix) 75 mg PO DAILY Blood Clot 05/05/24 06/22/24 06/22/24 History
Prevention/Tx
furosemide 40 mg tablet (Lasix) 40 mg PO DAILYPRN PRN swelling 05/05/24 06/22/24 05/01/24 History
levetiracetam 750 mg tablet 750 mg PO BID Seizures 05/05/24 06/22/24 06/22/24 History
magnesium 250 mg tablet 250 mg PO DAILY Supplement 05/05/24 06/22/24 06/22/24 History
mycophenolate mofetil 500 mg tablet 1,500 mg PO BID Transplant 05/05/24 06/22/24 06/22/24 History
prednisone 5 mg tablet 5 mg PO DAILY Transplant 0906/22/24 06/22/24 History
simvastatin 10 mg tablet 10 mg PO HS High Cholesterol 05/05/24 06/22/24 06/21/24 History
tamsulosin 0.4 mg capsule 0.4 mg PO HS Urinary Issue 05/05/24 06/22/24 06/21/24 History
cholecalciferol (vitamin D3) 25 25 mcg PO DAILY Supplement 06/07/24 06/22/24 06/22/24 History
mcg (1,000 unit) tablet (Vitamin
D3)
omeprazole 40 mg capsule,delayed 40 mg PO HS Gastrointestinal Issue 06/07/24 06/22/24 06/21/24 History
release
melatonin 2.5 mg chewable tablet 5 mg PO HSPRN PRN sleep 06/16/24 06/22/24 06/15/24 21:00 History
acetaminophen 325 mg tablet 650 mg (2 x 325 mg) PO Q6HPRN PRN 06/17/24 06/22/24 Unknown Rx
HOWARD, mild pain, or fever >101F #0
tabs
Lactobac no.2-Bifidobac no.1-S. 1 cap PO DAILY 06/22/24 06/22/24 06/21/24 History
thermo 112.5 billion cell capsule
(Visbiome)
aspirin 81 mg tablet,delayed 81 mg PO DAILY 06/22/24 06/22/24 06/22/24 History
release
budesonide-formoterol HFA 160 2 puff inhalation R BID 06/22/24 06/22/24 06/22/24 History
mcg-4.5 mcg/actuation aerosol
inhaler (Symbicort)
cyanocobalamin (vitamin B-12) 1,000 mcg PO DAILY 06/22/24 06/22/24 06/22/24 History
1,000 mcg tablet
fluticasone propionate 50 1 spray intranasal DAILYPRN PRN 06/22/24 06/22/24 Unknown History
mcg/actuation nasal congestion
spray,suspension
losartan 25 mg tablet 25 mg PO DAILY 06/22/24 06/22/24 06/22/24 History
Review of Systems
-
History Source: Patient
All other systems: Negative unless noted
Vitals / Labs / Diagnostic Testing
Vital Signs
Temp Pulse Resp BP Pulse Ox
97.9 F 91 18 144/62 94
06/23/24 08:00 06/23/24 08:09 06/23/24 08:09 06/23/24 08:00 06/23/24 08:09
Lab Data
06/23/24 09:08
06/23/24 09:05
Diagnostic Testing:
Physical Exam
-
HEENT: Normocephalic, Anicteric and Moist Mucous Membranes
Cardiovascular: S1/S2 and Regular Rhythm
Respiratory: Rales and Non-Labored Respirations
GI: Soft, Non Distended and Non Tender
Neurology: Awake, Alert, Oriented and No Motor Deficits
Skin: Warm, Dry and Good Color
General: Comfortable and Other (NAD)
Assessment
-
Patient is a 79-year-old male with past medical history significant for hypertension, hyperlipidemia, ILD on home O2 3L, s/p TAVR presenting to [place] ED following recommendation from visiting nurse and cardiothoracic surgeon. Patient was
discharged 06/19/2024 s/p TAVR. Since discharge he has noticed significant increase of dyspnea with exertion to where he needed to take a rest just walking a short distance. Was placed on 6L NC, baseline use of 3L. We are consulted for eval.
Acute on chronic hypoxemia, resolved
IPF/ILD on chronic 3L NC
Follows at [facility]
Hyperglycemia
Conditions present ORCHARD PRUNER
Severe aortic stenosis, s/p TAVR 06/16/24
Severe pulmonary disease
Hypertension
Hyperlipidemia
Obese with a BMI of greater than 30
Diabetes
History of TIA and possibility of atypical seizures
CKD
Anemia
Plan
Hypoxemia noted on arrival, increased to 6L
Baseline use of 3L
This has been weaned back to baseline
Prior history of lung disease is noted including IPF
Follows at [facility] with Dr Salter
Conservative treatment noted, prednisone 5mg daily
CXR/CT obtained indicating no worsening of IPF findings/similar to prior
Other imaging reviewed
proBNP neg, 100
Prior ECHO results are reviewed indicating stable TAVR placement
Following with CTS as OP
Weight loss measures recommended
Obesity may be contributing to respiratory symptoms
Will need outpatient pulmonary evaluation for PFTs and 6MWT
Reviewed with patient
Since back to baseline, discharge planned per team
Diagnostic Data
Chest X-Ray: 06/22/24- No acute cardiopulmonary process.
06/17/24-1. Findings consistent with moderate interstitial fibrosis, unchanged compared to prior chest x-ray. 2. TAVR prosthetic is in expected location.
CT Scan: CHEST 06/22/24- IMPRESSION:
1. No evidence of pulmonary embolism.
2. Findings in keeping with chronic interstitial lung disease such as usual interstitial pneumonitis.
[facility] 06/16/24- Conclusions:
1. Successful placement of #26 Homero S3 Ultra aortic valve with no acute complications
2. Mildly elevated LVEDP (EDP 22 mmHg)
Echo: 06/17/24- Normal biventricular size and systolic function without regional wall motion abnormality. Mild concentric left ventricular hypertrophy. Well-seated, normally functioning bioprosthetic aortic valve (status post TAVR, Andres HOMERO
26 mm). No regurgitation seen. Compared to the prior on 06/12/2024, the findings are similar.
PFT's:
Reports and relevant images were personally reviewed.
Total time spent on this consultation __75__ includes review of history, physical exam, medications, laboratory data, personal review of imaging, extensive review of outpatient records, discussion with care team and respiratory therapy.
--- NOTE | 2024-06-23 16:17 | W.DCSUMMARY ---
Documented by User: Jp Dixon MD, Resident 06/23/24 16:37
Discharge Summary
Discharge Data
Date of Admission: 06/22/24
Date of Discharge: 06/23/24
-
Pending Results: No
Hospital Course
Discharging Physician : Pepe Abraham DO ; Jp Dixon MD
Disposition : Home
Primary care physician : Moises Ruiz
Principal Discharge diagnosis : Acute on chronic hypoxemia, severe aortic stenosis, interstitial lung disease with severe IPF, essential hypertension, hyperlipidemia, DM type II, CKD, normocytic anemia.
Hospital Course : 79-year-old male with PMH of chronic hypoxemic respiratory failure secondary to ILD/IPF, on prednisone and MMF, severe arctic stenosis s/p TAVR 06/19/2024, history of CVA on DAPT, who presented to the ED on 06/22/2024 with
worsening WALLER. Initial CXR was unremarkable, CT chest was remarkable for usual interstitial pneumonitis but negative for PE and his proBNP was negative. He was also evaluated with an echocardiography which was also unremarkable. He has been on
PRN 40 mg Lasix PO [employer].
Patient was observed overnight, and was seen in conjunction with cardiology and pulmonology. Etiology of his worsening exertional dyspnea was unclear and he was transition to daily Lasix with potassium supplements due to concerns that he had
previously had hypokalemia with Lasix. His initial lab was concerning for worsening anemia which improved with subsequent lab and no suspicion for hemolysis.
Patient has been evaluated and is medically stable for discharge. He has been instructed to have a close follow-up with his crab catcher at [facility], and his PCP to monitor CBC. He was also instructed to follow-up with his sales representative [employer] in less
than 1 month for repeat TTE.
Important imaging findings :
CT chest 06/22/2024:
1. No evidence of pulmonary embolism.
2. Findings in keeping with chronic interstitial lung disease such as usual interstitial pneumonitis.
Echocardiography 06/22/2024:
Normal biventricular size and systolic function without regional wall motion
abnormality. Estimated LVEF 55-60%.
26 mm Andres Homero transcatheter aortic valve replacement, which is well
seated. Peak/mean gradients across the aortic valve are 28/15 mmHg
respectively. No aortic regurgitation is seen.
Compared to 06/17/24: prior TAVR gradients were 20/11 mmHg, with no AR.
Discharge Plan
-
Patient Disposition: Home (Routine Discharge)
Discharge Diagnosis/Procedures: Exertional dyspnea
Condition: Fair
Diet: No added salt
Activity: As tolerated
Driving Restrictions: No driving for 24 hours
Bathing Restrictions: None
Blood Work: None
Others Tests: Repeat echocardiogram with sales representative [employer] in 1 month
Activity Restrictions/Additional Instructions:
After discharge from the hospital you should have follow-up appointment with your family doctor for routine posthospital care
You should also follow-up with your crab catcher at [facility] within 1 week of discharge. Speak with them about your shortness of breath with exertion. You may need to see them in the office shortly after discharge
Speak with your crab catcher about pulmonary rehab
Instructions: Idiopathic pulmonary fibrosis, Interstitial lung disease, Pulmonary rehabilitation
Referrals:
Moises Ruiz MD [Family Provider] -
Reynaldo Sanchez MD [Active] - in one month
Additional Discharge Medication Instructions: Take Lasix 40 mg daily for ONE WEEK then return to as needed dosing for symptom of swelling
Prescriptions:
Continued
furosemide [Lasix] 40 mg Tablet
40 mg PO DAILYPRN PRN (Reason: swelling)
simvastatin 10 mg Tablet
10 mg PO HS
prednisone 5 mg Tablet
5 mg PO DAILY
clopidogrel [Plavix] 75 mg Tablet
75 mg PO DAILY
mycophenolate mofetil 500 mg Tablet
1,500 mg PO BID
tamsulosin 0.4 mg Capsule
0.4 mg PO HS
magnesium 250 mg Tablet
250 mg PO DAILY
levetiracetam 750 mg Tablet
750 mg PO BID
omeprazole 40 mg Capsule,Delayed Release(Dr/Ec)
40 mg PO HS
cholecalciferol (vitamin D3) [Vitamin D3] 25 mcg (1,000 unit) Tablet
25 mcg PO DAILY
melatonin 2.5 mg Tablet,Chewable
5 mg PO HSPRN PRN (Reason: sleep)
acetaminophen 325 mg Tablet
650 mg PO Q6HPRN PRN (Reason: HOWARD, mild pain, or fever >101F) Qty: 0 0RF
cyanocobalamin (vitamin B-12) 1,000 mcg Tablet
1,000 mcg PO DAILY
aspirin 81 mg Tablet,Delayed Release (Dr/Ec)
81 mg PO DAILY
losartan 25 mg Tablet
25 mg PO DAILY
fluticasone propionate 50 mcg/actuation Spruce,Suspension
1 spray INTRANASAL DAILYPRN PRN (Reason: congestion)
Visbiome 112.5 billion cell Capsule
1 cap PO DAILY
budesonide-formoterol [Symbicort] 160-4.5 mcg/actuation Hfa Aerosol Inhaler
2 puff INHALATION R BID
Discharge Orders:
Discharge Patient (As Directed); Ordered 06/23/24
Ordered By: Pepe Abraham
Discharge Date and Time
Print Language: NIUEAN

Documented by User: Pepe Abraham DO 06/23/24 16:48
Discharge Summary
Discharge Data
Date of Admission: 06/22/24
Date of Discharge: 06/23/24
Discharge Plan
-
Patient Disposition: Home (Routine Discharge)
Discharge Diagnosis/Procedures: Exertional dyspnea
Condition: Fair
Diet: No added salt
Activity: As tolerated
Driving Restrictions: No driving for 24 hours
Bathing Restrictions: None
Blood Work: None
Others Tests: Repeat echocardiogram with sales representative [employer] in 1 month
Activity Restrictions/Additional Instructions:
After discharge from the hospital you should have follow-up appointment with your family doctor for routine posthospital care
You should also follow-up with your crab catcher at [facility] within 1 week of discharge. Speak with them about your shortness of breath with exertion. You may need to see them in the office shortly after discharge
Speak with your crab catcher about pulmonary rehab
Instructions: Idiopathic pulmonary fibrosis, Interstitial lung disease, Pulmonary rehabilitation
Referrals:
Moises Ruiz MD [Family Provider] -
Reynaldo Sanchez MD [Active] - in one month
Additional Discharge Medication Instructions: Take Lasix 40 mg daily for ONE WEEK then return to as needed dosing for symptom of swelling
Prescriptions:
Continued
furosemide [Lasix] 40 mg Tablet
40 mg PO DAILYPRN PRN (Reason: swelling)
simvastatin 10 mg Tablet
10 mg PO HS
prednisone 5 mg Tablet
5 mg PO DAILY
clopidogrel [Plavix] 75 mg Tablet
75 mg PO DAILY
mycophenolate mofetil 500 mg Tablet
1,500 mg PO BID
tamsulosin 0.4 mg Capsule
0.4 mg PO HS
magnesium 250 mg Tablet
250 mg PO DAILY
levetiracetam 750 mg Tablet
750 mg PO BID
omeprazole 40 mg Capsule,Delayed Release(Dr/Ec)
40 mg PO HS
cholecalciferol (vitamin D3) [Vitamin D3] 25 mcg (1,000 unit) Tablet
25 mcg PO DAILY
melatonin 2.5 mg Tablet,Chewable
5 mg PO HSPRN PRN (Reason: sleep)
acetaminophen 325 mg Tablet
650 mg PO Q6HPRN PRN (Reason: HOWARD, mild pain, or fever >101F) Qty: 0 0RF
cyanocobalamin (vitamin B-12) 1,000 mcg Tablet
1,000 mcg PO DAILY
aspirin 81 mg Tablet,Delayed Release (Dr/Ec)
81 mg PO DAILY
losartan 25 mg Tablet
25 mg PO DAILY
fluticasone propionate 50 mcg/actuation Spruce,Suspension
1 spray INTRANASAL DAILYPRN PRN (Reason: congestion)
Visbiome 112.5 billion cell Capsule
1 cap PO DAILY
budesonide-formoterol [Symbicort] 160-4.5 mcg/actuation Hfa Aerosol Inhaler
2 puff INHALATION R BID
Discharge Orders:
Discharge Patient (As Directed); Ordered 06/23/24
Ordered By: Pepe Abraham
Discharge Date and Time
Print Language: NIUEAN
--- NOTE | 2024-06-23 17:21 | PTCARENOTE ---
Pt received this am on 3LNC. Sat 98%. Denies any pain or sob. Assisted oob to the bathroom and the chair. Gait steady with the walker. Pt discharged to home with his . Discharge instructions given and reviewed with good understanding.
[2024-06-25 02:44] LABS: Haptoglobin 73 mg/dL (30-200)
== END 2024-06-23 17:16 | disposition home or self-care (01) ==
LOC: IVU 23:13
PROVIDERS: Student in an Organized Health Care Education/Training Program; ADMITTING PHYSICIAN Internal Medicine; ATTENDING PHYSICIAN Internal Medicine; CONSULT PHYSICIAN Internal Medicine; EMERGENCY PHYSICIAN Emergency Medicine; FAMILY PHYSICIAN Internal Medicine; OTHER PHYSICIAN Student in an Organized Health Care Education/Training Program
DX: J84.112 Idiopathic pulmonary fibrosis (principal); I13.0 Hypertensive heart and chronic kidney disease with heart failure and stage 1 through stage 4 chronic kidney disease, or unspecified chronic kidney disease; J96.21 Acute and chronic respiratory failure with hypoxia; N18.9 Chronic kidney disease, unspecified; E11.22 Type 2 diabetes mellitus with diabetic chronic kidney disease; I35.0 Nonrheumatic aortic (valve) stenosis; E11.51 Type 2 diabetes mellitus with diabetic peripheral angiopathy without gangrene; E78.00 Pure hypercholesterolemia, unspecified; E66.9 Obesity, unspecified; D64.9 Anemia, unspecified; E11.65 Type 2 diabetes mellitus with hyperglycemia; D63.8 Anemia in other chronic diseases classified elsewhere; I48.20 Chronic atrial fibrillation, unspecified; Z99.81 Dependence on supplemental oxygen; Z86.73 Personal history of transient ischemic attack (TIA), and cerebral infarction without residual deficits; Z79.02 Long term (current) use of antithrombotics/antiplatelets; Z79.82 Long term (current) use of aspirin; Z87.891 Personal history of nicotine dependence; Z95.3 Presence of xenogenic heart valve; Z79.51 Long term (current) use of inhaled steroids; Z79.624 Long term (current) use of inhibitors of nucleotide synthesis; Z79.52 Long term (current) use of systemic steroids; Z68.34 Body mass index [BMI] 34.0-34.9, adult; Z11.52 Encounter for screening for COVID-19
CPT/HCPCS: 93308; 71046; 71275; 80053; 82247; 82248; 82607; 82728; 82746; 82962; 83010; 83540; 83550; 83615; 83880; 85025; 87811; 93005; 93321; 93325; 94640; 96374; 97163; 97166; 99285; G0378; Q9950; Q9967